=== PATIENT | male | born 1945 | race Caucasian/White ===

== ENCOUNTER 2016-10-29 11:05 | Observation (INO) | payer MEDICARE, OTHER ==
[~2016-10-29] VITALS: Ht 180.3 cm; Wt 98.0 kg
[~2016-10-29 11:05] MED LIST: ALDACTONE25 MG PO; ASPIRIN LOW DOS81 M2 PO; AZITHROMYCIN500 MG PO; CARVEDILOL3.125 MG PO; HUMULIN 70/30 SC; IPRATROPIU0.5 MG/3 M NEB; LASIX 40 MG40 MG/TAB PO; LIPITOR40 MG PO; LISINOPRIL10 MG PO; LISINOPRIL2.5 MG PO; LISINOPRIL20 M1 PO; MECLIZINE25 MG PO; NICOTINE T21 MG/PATC TD; NO HOME MEDS; NOVOLIN 70/30 SC; PERCOCET 10/31 COMBO PO; PREDNISONE50 MG PO; PROAIR HFA IN; ROCEPHIN 1 GM1 GM IV; SYMBICORT1 AE1 IN; TRAMADOL HCL50 MG OR; ZESTRIL/PRIN5 MG/TA1 PO; ZOFRAN ODT4 MG PO; [UNRECOGNIZED DRUG - OTHER] IV
[2016-10-29] MEDS ORDERED: LANTUS100 UNIT/M SC (11:18)
[2016-10-29] MEDS ORDERED: LIPITOR40 M1 PO (11:19)
[2016-10-29] MEDS ORDERED: SPIRONOLACTONE50 MG PO (11:20)
[2016-10-29] MEDS ORDERED: MULTI VIT PO (11:23)
[2016-10-29] MEDS ORDERED: LASIX 80 MG TAB80 M1 PO (11:23)
[2016-10-29] MEDS ORDERED: VITAMIN D1000 UNI1 PO (11:24)
[2016-10-29] MEDS ORDERED: BUDESONID2 IN (11:25)
[2016-10-29] MEDS ORDERED: ACCOLATE10 MG PO (11:26)
[2016-10-29] MEDS ORDERED: IPRATROPIU0.5 MG/3 M IN (11:26)
[2016-10-29] MEDS ORDERED: VITAMIN C500 M1 PO (11:27)
[2016-10-29] MEDS ORDERED: ZYRTEC10 MG PO (11:27)
[2016-10-29] MEDS ORDERED: CARVEDILOL3.125 MG PO (11:28)
[2016-10-29] MEDS ORDERED: LISINOPRIL5 MG PO (11:28)
[2016-10-29] MEDS ORDERED: BAYER ASPIRIN325 MG PO (11:29)
[2016-10-29] MEDS ORDERED: ESCITALOPRAM OX10 MG PO (11:29)
[2016-10-29 11:45] LABS: HEMATOCRIT 35.9 % (39.0-50.0); IMMATURE GRANULOCYTES 0.3 % (0.0-1.0); MEAN CELL VOLUME 102.9 fL CALC (80.0-100.0); MEAN CORPUSCULAR HGB 34.4 pG CALC (26.0-32.0); MEAN CORPUSCULAR HGB CONC 33.4 g/L CALC (32.0-36.0); NEUT# 6.51 thou/uL (1.82-7.42); RED BLOOD COUNT 3.49 mill/uL (4.70-6.10); RED CELL DISTRI WIDTH 13.3 % (11.5-15.5)
[2016-10-29 12:00] LABS: ALBUMIN 4.2 g/dL (3.2-5.0); ALKALINE PHOSPHATASE 100 u/l (38-126); AMYLASE 50 u/l (30-110); ANION GAP 16 (6-22 (CALC)); BILIRUBIN, TOTAL 0.6 mg/dL (0.0-1.4); BUN 47 mg/dL (8-23); BUN/CREATININE RATIO 38 (12-20 (CALC)); CALCIUM 9.1 mg/dL (8.4-10.2); CARBON DIOXIDE 26 mmol/l (22-30); CHLORIDE 104 mmol/l (95-108); CREATININE 1.2 mg/dL (0.7-1.3); GFR 60 ML/MIN (>=60 (CALC)); GFR FOR AFR.AMER. > 60 ML/MIN (>=60 (CALC)); GLUCOSE 143 mg/dL (82-115); LIPASE 100 u/l (23-300); POTASSIUM 4.4 mmol/l (3.5-5.1); SGOT/AST 22 u/l (19-48); SGPT/ALT 51 u/l (11-66); SODIUM 141 mmol/l (137-146); TOTAL PROTEIN 7.2 g/dL (6.3-8.2)
[2016-10-29 12:22] LABS: URINE BILIRUBIN - DIPSTICK NEGATIVE (NEGATIVE); URINE BLOOD DIPSTICK NEGATIVE (NEGATIVE); URINE CLARITY CLEAR; URINE COLOR YELLOW; URINE GLUCOSE - DIPSTICK NEGATIVE (NEGATIVE); URINE KETONE NEGATIVE (NEGATIVE); URINE LEUK ESTERASE NEGATIVE (NEGATIVE); URINE NITRITE - DIPSTICK NEGATIVE (Negative); URINE PROTEIN - DIPSTICK NEGATIVE (NEG-TRACE); URINE UROBILINOGEN - DIPSTICK 0.2 E.U./dL (0.2)
[2016-10-29 12:25] LABS: BARBITURATES NEGATIVE (NEGATIVE); COCAINE NEGATIVE (NEGATIVE); METHADONE NEGATIVE (NEGATIVE); OXCYCODONE NEGATIVE (NEGATIVE); TETRAHYDROCANNABIONOL NEGATIVE (NEGATIVE); TRICYLIC ANTIDEPRESSANTS NEGATIVE (NEGATIVE)
[2016-10-29 19:10] VITALS: BP 112/60
[2016-10-29 19:47] VITALS: BP 118/68
[2016-10-30 04:58] VITALS: BP 103/50
[2016-10-30 06:45] LABS: HEMOGLOBIN 11.4 g/dl (14.0-18.0); IMMATURE GRANULOCYTES 0.4 % (0.0-1.0); MEAN CELL VOLUME 102.1 fL CALC (80.0-100.0); MEAN CORPUSCULAR HGB 34.2 pG CALC (26.0-32.0); MEAN CORPUSCULAR HGB CONC 33.5 g/L CALC (32.0-36.0); NEUT# 4.6 thou/uL (1.82-7.42); RED BLOOD COUNT 3.33 mill/uL (4.70-6.10); RED CELL DISTRI WIDTH 13.3 % (11.5-15.5)
[2016-10-30 06:56] LABS: ANION GAP 13 (6-22 (CALC)); BUN 44 mg/dL (8-23); BUN/CREATININE RATIO 36 (12-20 (CALC)); CALCIUM 8.9 mg/dL (8.4-10.2); CARBON DIOXIDE 26 mmol/l (22-30); CHLORIDE 108 mmol/l (95-108); CREATININE 1.2 mg/dL (0.7-1.3); GFR 60 ML/MIN (>=60 (CALC)); GFR FOR AFR.AMER. > 60 ML/MIN (>=60 (CALC)); GLUCOSE 100 mg/dL (82-115); HDL CHOLESTEROL 18 mg/dL (>=40); POTASSIUM 4.1 mmol/l (3.5-5.1); SODIUM 143 mmol/l (137-146); TOTAL TRIGLYCERIDES 69 mg/dl (30-149); VLDL CHOLESTROL 14 mg/dl (4-45 (CALC))
[2016-10-30 07:03] LABS: CALCULATED LDLCHOLESTEROL < 18 mg/dL (62-129 (CALC)); CHOLESTEROL HDL RATIO < 2.8 (<4.4 (CALC)); TOTAL CHOLESTEROL < 50 mg/dl (0-199)
[2016-10-30] MEDS ORDERED: ASPIRIN EC325 MG PO (08:09)
[2016-10-30 09:00] VITALS: BP 126/56
== END 2016-10-30 10:46 | disposition home or self-care (01) ==
LOC: ENPENDDIS → ED 11:05 → ED-I 14:06 → ED 14:31 → MS2 14:32
PROVIDERS: Emergency Medicine; ADMIT Internal Medicine; ATTEND Internal Medicine
DX: R10.32 Left lower quadrant pain (principal); K46.0 Unspecified abdominal hernia with obstruction, without gangrene; I11.0 Hypertensive heart disease with heart failure; I50.22 Chronic systolic (congestive) heart failure; E11.9 Type 2 diabetes mellitus without complications; R00.1 Bradycardia, unspecified; K70.30 Alcoholic cirrhosis of liver without ascites; F17.210 Nicotine dependence, cigarettes, uncomplicated; I25.10 Atherosclerotic heart disease of native coronary artery without angina pectoris; I25.5 Ischemic cardiomyopathy; J44.9 Chronic obstructive pulmonary disease, unspecified; Z79.4 Long term (current) use of insulin
CPT/HCPCS: G0378; Q9967

== ENCOUNTER 2017-03-21 11:21 | Emergency (ER) | payer MEDICARE, OTHER ==
[~2017-03-21] VITALS: Ht 180.3 cm; Wt 90.0 kg
[~2017-03-21 11:21] MED LIST changes: +ACCOLATE10 MG PO; +ASPIRIN EC325 MG PO; +BAYER ASPIRIN325 MG PO; +BUDESONID2 IN; +ESCITALOPRAM OX10 MG PO; +IPRATROPIU0.5 MG/3 M IN; +LANTUS100 UNIT/M SC; +LASIX 80 MG TAB80 M1 PO; +LIPITOR40 M1 PO; +LISINOPRIL5 MG PO; +MULTI VIT PO; +SPIRONOLACTONE50 MG PO; +VITAMIN C500 M1 PO; +VITAMIN D1000 UNI1 PO; +ZYRTEC10 MG PO
[2017-03-21 11:47] LABS: HEMATOCRIT 39.3 % (39.0-50.0); HEMOGLOBIN 12.7 g/dl (14.0-18.0); IMMATURE GRANULOCYTES 0.3 % (0.0-1.0); MEAN CORPUSCULAR HGB CONC 32.3 g/L CALC (32.0-36.0); NEUT# 7.14 thou/uL (1.82-7.42); RED BLOOD COUNT 3.97 mill/uL (4.70-6.10); RED CELL DISTRI WIDTH 16.2 % (11.5-15.5)
[2017-03-21 12:10] LABS: ALBUMIN 3.7 g/dL (3.2-5.0); ALKALINE PHOSPHATASE 105 u/l (38-126); ANION GAP 12 (6-22 (CALC)); BILIRUBIN, TOTAL 0.9 mg/dL (0.0-1.4); BUN 32 mg/dL (8-23); BUN/CREATININE RATIO 33 (12-20 (CALC)); CALCIUM 8.8 mg/dL (8.4-10.2); CARBON DIOXIDE 38 mmol/l (22-30); CHLORIDE 103 mmol/l (95-108); GFR > 60 ML/MIN (>=60 (CALC)); GFR FOR AFR.AMER. > 60 ML/MIN (>=60 (CALC)); GLUCOSE 236 mg/dL (82-115); POTASSIUM 3.8 mmol/l (3.5-5.1); SGOT/AST 53 u/l (19-48); SGPT/ALT 34 u/l (11-66); SODIUM 149 mmol/l (137-146)
[2017-03-21 12:16] LABS: URINE BILIRUBIN - DIPSTICK NEGATIVE (NEGATIVE); URINE BLOOD DIPSTICK NEGATIVE (NEGATIVE); URINE CLARITY CLEAR; URINE COLOR YELLOW; URINE GLUCOSE - DIPSTICK NEGATIVE (NEGATIVE); URINE KETONE NEGATIVE (NEGATIVE); URINE LEUK ESTERASE NEGATIVE (NEGATIVE); URINE NITRITE - DIPSTICK NEGATIVE (Negative); URINE PH 5.5 (4.5-8.0); URINE PROTEIN - DIPSTICK NEGATIVE (NEG-TRACE); URINE UROBILINOGEN - DIPSTICK 0.2 E.U./dL (0.2)
[2017-03-21 12:21] LABS: MYOGLOBIN 82 ng/mL (0 - 121)
[2017-03-21 14:35] VITALS: BP 118/59
== END 2017-03-21 14:37 | disposition left against medical advice (07) ==
LOC: ED 11:21
PROVIDERS: Emergency Medicine
DX: J44.1 Chronic obstructive pulmonary disease with (acute) exacerbation (principal); R10.9 Unspecified abdominal pain; F17.210 Nicotine dependence, cigarettes, uncomplicated; I25.10 Atherosclerotic heart disease of native coronary artery without angina pectoris; E11.9 Type 2 diabetes mellitus without complications; I50.9 Heart failure, unspecified; Z91.19 Patient's noncompliance with other medical treatment and regimen

== ENCOUNTER 2017-03-21 15:33 | Inpatient (IN) | payer MEDICARE, OTHER ==
[~2017-03-21] VITALS: Ht 180.3 cm; Wt 108.9 kg
--- NOTE | 2017-03-21 15:40 | NUR ---
DIRECT ADMIT VIA AMBULATION ACCOMPANIED BY ROD TROY. EXERTIONAL SHORTNESS OF BREATH NOTED ON ROOM AIR. #22 LH STARTED BY Paige CLINTON RN. ABRASION TO RIGHT LOWER ARM. REFUSES TO REMOVE CLOTHES AND WEAR GOWN. ORIENTED TO ROOM AND CALL SYSTEM. SAFETY PRECAUTIONS REINFORCED. CALL LIGHT WITHIN REACH. ENCOURAGED PT TO CALL FOR ANY NEEDS.
[2017-03-21 15:44] VITALS: BP 136/75
--- NOTE | 2017-03-21 17:25 | NUR ---
DR VIVAR IN WITH PT, NEW ORDERS RECEIVED.
[2017-03-21 18:45] VITALS: BP 117/52
--- NOTE | 2017-03-21 21:00 | NUR ---
PT RESTING AT BEDSIDE;PT DENIES ANY PAIN OR DISCOMFORTS AT THIS TIME;EXERTIONAL SOB NOTED;PHOTOGRAPH OF ABRASION TO RIGHT ARM OBTAIN AND PLACED IN CHART;NEW DRESSING APPLIED,CDI;NICOTINE PATCH TO LEFT UPPER ARM;#20G TO RIGHT WRIST FLUSHED,PATENT,AND SECURED WITH COBAN;URINAL AT BEDSIDE;PT DENIES ANY NEEDS AT THIS TIME AND IS EDUCATED ON SAFETY PRECAUTIONS;CALL LIGHT IN REACH;WILL CONTINUE TO MONITOR
--- NOTE | 2017-03-21 22:30 | NUR ---
PT CALLED WRITTER TO THE ROOM;PT SCRATCHED A SCAB ON HIS RIGHT UPPER ARM WHICH IS NOW BLEEDING;SITE CLEANED WITH NS AND DRESSED WITH ABD PAD AND GUAZE;PT RE-POSITIONED BACK INTO BED;PT DENIES ANY PAIN OR NEEDS AT THIS TIME;PT EDUCATED TO CALL FOR ASSISTANCE IF NEEDED;CALL LIGHT IN REACH;WILL CONTINUE TO MONITOR
[2017-03-22 04:10] VITALS: BP 123/70
--- NOTE | 2017-03-22 04:15 | NUR ---
PT RESTING AT BEDSIDE REQUESTING MORNING COFFEE;VS OBTAINED;RESPIRATIONS EVEN AND UNLABORED AT THIS TIME;PT DENIES ANY PAIN OR DISCOMFORTS;IV SITE REMAINS HEALTHY AND PATENT;VS OBTAINED;FRESH COFFEE PROVIDED;PT DENIES ANY NEEDS;WILL CONTINUE TO MONITOR
[2017-03-22 05:03] LABS: HEMATOCRIT 42.7 % (39.0-50.0); HEMOGLOBIN 13.7 g/dl (14.0-18.0); IMMATURE GRANULOCYTES 0.4 % (0.0-1.0); MEAN CELL VOLUME 99.1 fL CALC (80.0-100.0); MEAN CORPUSCULAR HGB 31.8 pG CALC (26.0-32.0); MEAN CORPUSCULAR HGB CONC 32.1 g/L CALC (32.0-36.0); NEUT# 8.63 thou/uL (1.82-7.42); RED BLOOD COUNT 4.31 mill/uL (4.70-6.10); RED CELL DISTRI WIDTH 16.1 % (11.5-15.5)
[2017-03-22 05:16] LABS: ALKALINE PHOSPHATASE 126 u/l (38-126); ANION GAP 17 (6-22 (CALC)); BILIRUBIN, TOTAL 0.9 mg/dL (0.0-1.4); BUN 31 mg/dL (8-23); BUN/CREATININE RATIO 31 (12-20 (CALC)); CALCIUM 9.4 mg/dL (8.4-10.2); CALCULATED LDLCHOLESTEROL 36 mg/dL (62-129 (CALC)); CARBON DIOXIDE 33 mmol/l (22-30); CHLORIDE 105 mmol/l (95-108); CHOLESTEROL HDL RATIO 2.6 (<4.4 (CALC)); GFR > 60 ML/MIN (>=60 (CALC)); GFR FOR AFR.AMER. > 60 ML/MIN (>=60 (CALC)); GLUCOSE 365 mg/dL (82-115); HDL CHOLESTEROL 29 mg/dL (>=40); POTASSIUM 4.5 mmol/l (3.5-5.1); SGOT/AST 23 u/l (19-48); SGPT/ALT 39 u/l (11-66); SODIUM 150 mmol/l (137-146); TOTAL CHOLESTEROL 76 mg/dl (0-199); TOTAL PROTEIN 7.1 g/dL (6.3-8.2); TOTAL TRIGLYCERIDES 55 mg/dl (30-149); VLDL CHOLESTROL 11 mg/dl (4-45 (CALC))
[2017-03-22 07:30] VITALS: BP 109/58
--- NOTE | 2017-03-22 08:20 | NUR ---
DR. VIVAR IN TO SEE PT; PLAN OF CARE DISCUSSED
--- NOTE | 2017-03-22 12:00 | NUR ---
PT SITTING ON SIDE OF BED; TOLERATING LUNCH WELL; NO COMPLAINTS OR CONCERNS VOICED; CALL HAINES WITHIN REACH; WILL CONTINUE TO MONITOR.
--- NOTE | 2017-03-22 16:23 | NUR ---
PT RESTING WITH EYES CLOSED; NO S/SX OF DISTRESS NOTED; TELE MONITOR IN PLACE; CALL HAINES WITHIN REACH; WILL CONTINUE TO MONITOR.
[2017-03-22 17:05] VITALS: BP 122/65
--- NOTE | 2017-03-22 18:20 | NUR ---
PT REFUSE ARMANDO HOSE; STATES TOO TIGHT ON LEGS; CALL HAINES WITHIN REACH; WILL CONTINUE TO MONITOR.
[2017-03-22 19:25] VITALS: BP 117/59
--- NOTE | 2017-03-22 20:45 | NUR ---
PT RESTING AT BEDSIDE;RESPIRATIONS EVEN AND UNLABORED ON 02 VIA NC;PT VOICES NO COMPLAINTS OR CONERNS AT THIS TIME;#20G TO RIGHT WRIST AND #20G TO LAC FLUSHED,PATENT AND SECURED WITH COBAN;ACCUCHECK OF 229 OBTAINED;ASSESSMENT COMPLETED;SCD'S IN PLACE;SAFETY PRECAUTIONS REINFORCED;PT EDUCATED TO CALL FOR ASSISTANCE IF NEEDED;CALL LIGHT IN REACH;WILL CONTINUE TO MONITOR
--- NOTE | 2017-03-23 00:20 | NUR ---
PT RESTING AT BEDSIDE;PT REPORTS DIFFICULTY SLEEPING AT NIGHT IN HOSPITAL AND AT HOME;RESPIRATIONS SHALLOW BUT EVEN;PT REFUSES SCD'S AT THIS TIME;JUICE PROVIDED PER REQUEST;NO OTHER COMPLAINTS OR CONERNS VOICED AT THIS TIME;CALL LIGHT IN REACH;WILL CONTINUE TO MONITOR
--- NOTE | 2017-03-23 04:40 | NUR ---
PT RESTING AT BEDSIDE;PT VOICES NO COMPLAINTS OF PAIN OR DISCOMFORTS;RESPIRATIONS SHALLOW BUT EVEN ON OXYGEN;VS OBTAINED;PT EDUCATED TO CALL FOR ASSISTANCE IF NEEDED;CALL LIGHT IN REACH;WILL CONTINUE TO MONITOR
[2017-03-23 04:41] VITALS: BP 102/53; BP 115/77
[2017-03-23 05:35] LABS: HEMATOCRIT 40.7 % (39.0-50.0); HEMOGLOBIN 13.1 g/dl (14.0-18.0); IMMATURE GRANULOCYTES 0.8 % (0.0-1.0); MEAN CELL VOLUME 97.6 fL CALC (80.0-100.0); MEAN CORPUSCULAR HGB 31.4 pG CALC (26.0-32.0); MEAN CORPUSCULAR HGB CONC 32.2 g/L CALC (32.0-36.0); NEUT# 17.23 thou/uL (1.82-7.42); RED BLOOD COUNT 4.17 mill/uL (4.70-6.10); RED CELL DISTRI WIDTH 16.1 % (11.5-15.5)
[2017-03-23 06:00] LABS: ALKALINE PHOSPHATASE 113 u/l (38-126); ANION GAP 17 (6-22 (CALC)); BILIRUBIN, TOTAL 0.8 mg/dL (0.0-1.4); BUN 41 mg/dL (8-23); BUN/CREATININE RATIO 38 (12-20 (CALC)); CALCIUM 9.8 mg/dL (8.4-10.2); CARBON DIOXIDE 31 mmol/l (22-30); CHLORIDE 103 mmol/l (95-108); CREATININE 1.1 mg/dL (0.7-1.3); GFR > 60 ML/MIN (>=60 (CALC)); GFR FOR AFR.AMER. > 60 ML/MIN (>=60 (CALC)); GLUCOSE 228 mg/dL (82-115); POTASSIUM 4.6 mmol/l (3.5-5.1); SGOT/AST 21 u/l (19-48); SGPT/ALT 40 u/l (11-66); SODIUM 146 mmol/l (137-146); TOTAL PROTEIN 7.1 g/dL (6.3-8.2)
--- NOTE | 2017-03-23 07:00 | NUR ---
RECEIVED BEDSIDE REPORT FROM BAKARI TROY. SITTING ON EDGE OF BED WITH FEET DANGLING. RESPS EVEN AND UNLABORED ON O2 VIA NC, SHORTNESS OF BREATH WITH EXERTION NOTED. DENIES PAIN OR DISCOMFORT. PLAN OF CARE DISCUSSED. SAFETY PRECAUTIONS REINFORCED. BED IN LOWEST POSITION WITH WHEELS LOCKED. CALL LIGHT WITHIN REACH. ENCOURAGED PT TO CALL FOR ANY NEEDS.
[2017-03-23 08:42] VITALS: BP 106/50
--- NOTE | 2017-03-23 08:45 | NUR ---
DR VIVAR IN WITH PT, NEW ORDERS RECEIVED.
--- NOTE | 2017-03-23 11:35 | NUR ---
PHONE CALL TO DR VIVAR, NEW ORDERS RECEIVED.
--- NOTE | 2017-03-23 12:23 | NUR ---
AMBULATED OFF FLOOR TO SMOKE. EDUCATED PT ON RISKS OF SMOKING CIGARETTES. [facility] IS A SMOKEFREE FACILITY. DR VIVAR NOTIFIED.
--- NOTE | 2017-03-23 12:55 | NUR ---
AMBULATED BACK TO ROOM WITH STEADY GAIT.
[2017-03-23 15:30] VITALS: BP 107/57
--- NOTE | 2017-03-23 16:00 | NUR ---
SITTING ON EDGE OF BED WITH FEET DANGLING. RESPS EVEN AND UNLABORED ON O2 VIA NC. DENIES PAIN OR DISCOMFORT. CALL LIGHT WITHIN REACH.
[2017-03-23 19:10] VITALS: BP 103/68
--- NOTE | 2017-03-23 19:30 | NUR ---
PT SITTING UP ON SIDE OF BED. PT IS ALERT AND ORIENTED X3. PERRLA.RESP ARE EVEN AND UNLABORED. LUNGS ARE CLEAR. HR REGULAR. PULSES PALPABLE THROUGHOUT. NO EDEMA NOTED. BS ACTIVE. #20 LAC AND #20 RW. NO REDNESS OR EDEMA NOTED. WILL CONTINUE TO MONITOR.
--- NOTE | 2017-03-24 | NUR ---
PT SITTING UP ON SIDE OF BED. ENCOURAGED PT TO REST IN BED. PT REFUSED. RESP ARE EVEN AND UNLABORED. NO DISTRESS NOTED. WILL CONTINUE TO MONITOR.
[2017-03-24 04:20] VITALS: BP 116/71
--- NOTE | 2017-03-24 04:39 | NUR ---
PT SITTING UP ON SIDE OF BED WITH EYES CLOSED. RESP ARE EVEN AND UNLABORED. NO DISTRESS NOTED. NO CHANGE IN PT STATUS. WILL CONTINE TO MONITOR.
--- NOTE | 2017-03-24 07:00 | NUR ---
REPORT RECIEVED FROM KERMIT VICENTE. PT ASLEEP UPON ENTRY, WOKE SPONTANEOUSLY TO SPEECH. PT HAS NO COMPLAINTS OF PAIN. RESP EVEN AND UNLABORED. IV SIGHT APPEARS HEALTHY. SAFETY PRECAUTIONS IN PLACE. CALL LIGHT WITHIN REACH. WILL CONTINUE TO MONITOR HOURLY.
[2017-03-24 07:56] VITALS: BP 100/62
--- NOTE | 2017-03-24 08:40 | NUR ---
DOCTOR IN ROOM WITH PT.
--- NOTE | 2017-03-24 09:02 | NUR ---
CONSULT CALLED TO DR. BRISCOE. APPTOINTMENT SET FOR OUTPATIENT IN DR. BRISCOE OFFICE IN [place], [address] 03-29 @ 3030.
[2017-03-24 15:40] VITALS: BP 104/59
[2017-03-24 17:00] VITALS: BP 100/62
--- NOTE | 2017-03-24 18:00 | NUR ---
PT HAS BP OF 100/62, HR 55. DR. GHAZALA LYONS NOTIFIED.
[2017-03-24 19:10] VITALS: BP 132/66
--- NOTE | 2017-03-24 20:30 | NUR ---
PT SITTING ON SIDE OF BED A/O X3, RESPIRATIONS EVEN AND UNLABORED ABDOMEN IS LARGE AND FIRM TO TOUCH REFUSES TO WEAR ABDOMINAL BINDER. ENCOURAGED TO ELEVATE LEGS, AND ALSO REFUSES. LOWER EXTREMITIES ARE REDDNED WITH PITTING EDEMA, THE LEFT LEG MORE EDEMATOUS THAN THE RIGHT, WEAPING SEROUS FLUID. CALL LIGHT IN REACH. WILL CONTINUE TO MONITOR.
--- NOTE | 2017-03-25 01:00 | NUR ---
SITTING ON SIDE OF BED, RESPIRATIONS EVEN AND UNLABORED. STATES CANT SLEEP, O2 @2L VIA NC IN PLACE. WILL CONTINUE TO MONITOR.
--- NOTE | 2017-03-25 03:00 | NUR ---
PT IN BED LAYING ON LEFT SIDE WITH EYES CLOSED, RESPIRATIONS EVEN AND UNLABORED.
[2017-03-25 03:51] VITALS: BP 117/61
--- NOTE | 2017-03-25 04:30 | NUR ---
MORNING BLOOD WORK DRAWN BY PERSONAL INJURY LAW SPECIALIST, TOLERATED WELL.
[2017-03-25 05:40] LABS: HEMATOCRIT 41.1 % (39.0-50.0); HEMOGLOBIN 13.1 g/dl (14.0-18.0); IMMATURE GRANULOCYTES 0.6 % (0.0-1.0); MEAN CELL VOLUME 98.6 fL CALC (80.0-100.0); MEAN CORPUSCULAR HGB 31.4 pG CALC (26.0-32.0); MEAN CORPUSCULAR HGB CONC 31.9 g/L CALC (32.0-36.0); NEUT# 9.43 thou/uL (1.82-7.42); RED BLOOD COUNT 4.17 mill/uL (4.70-6.10); RED CELL DISTRI WIDTH 15.6 % (11.5-15.5)
[2017-03-25 06:03] LABS: ALBUMIN 3.8 g/dL (3.2-5.0); ALKALINE PHOSPHATASE 97 u/l (38-126); ANION GAP 15 (6-22 (CALC)); BUN 54 mg/dL (8-23); BUN/CREATININE RATIO 47 (12-20 (CALC)); CALCIUM 9.4 mg/dL (8.4-10.2); CARBON DIOXIDE 32 mmol/l (22-30); CHLORIDE 101 mmol/l (95-108); CREATININE 1.1 mg/dL (0.7-1.3); GFR > 60 ML/MIN (>=60 (CALC)); GFR FOR AFR.AMER. > 60 ML/MIN (>=60 (CALC)); GLUCOSE 147 mg/dL (82-115); POTASSIUM 4.8 mmol/l (3.5-5.1); SGOT/AST 28 u/l (19-48); SGPT/ALT 49 u/l (11-66); SODIUM 143 mmol/l (137-146); TOTAL PROTEIN 6.8 g/dL (6.3-8.2)
--- NOTE | 2017-03-25 07:00 | NUR ---
REPORT RECIEVED FROM WOODROW GARCIA. PT ASLEEP ON ENTRY. RESP EVEN AND UNLABORED. NO SIGNS OF DISTRESS. SAFETY PRECAUTIONS IN PLACE. WILL CONTINUE TO MONITOR.
[2017-03-25 07:50] VITALS: BP 103/56
[2017-03-25] MEDS ORDERED: LEVAQUIN750 MG PO (09:12)
--- NOTE | 2017-03-25 11:42 | NUR ---
O2 SAT: 84. PT EDUCATED ON IMPORTANCE OF WEARING O2. PT REFUSES TO WEAR O2. SAFETY PRECAUTIONS REINFORCED. CALL LIGHT WITHIN REACH.
--- NOTE | 2017-03-25 13:51 | NUR ---
PT STATES HE IS GOING OFF THE FLOOR TO SMOKE. PT SIGNED THE RELEASE FROM LIABILITY FOR SMOKING FORM.
--- NOTE | 2017-03-25 14:13 | NUR ---
PT BACK ON FLOOR.
[2017-03-25 15:28] VITALS: BP 103/52
--- NOTE | 2017-03-25 15:30 | NUR ---
IV REMOVED, CATH INTACT. PRESSURE DRESSING APPLIED. SITE CLEAN DRY AND INTACT.
== END 2017-03-25 19:30 | disposition home or self-care (01) | DRG 291 ==
LOC: MS2 15:33
PROVIDERS: ADMIT Internal Medicine Geriatric Medicine; ATTEND Internal Medicine Geriatric Medicine
DX: I11.0 Hypertensive heart disease with heart failure (principal); J18.9 Pneumonia, unspecified organism; J96.01 Acute respiratory failure with hypoxia; J44.0 Chronic obstructive pulmonary disease with (acute) lower respiratory infection; L03.115 Cellulitis of right lower limb; L03.116 Cellulitis of left lower limb; J44.1 Chronic obstructive pulmonary disease with (acute) exacerbation; I50.23 Acute on chronic systolic (congestive) heart failure; F03.90 Unspecified dementia, unspecified severity, without behavioral disturbance, psychotic disturbance, mood disturbance, and anxiety; K74.60 Unspecified cirrhosis of liver; I25.10 Atherosclerotic heart disease of native coronary artery without angina pectoris; E11.51 Type 2 diabetes mellitus with diabetic peripheral angiopathy without gangrene; K21.9 Gastro-esophageal reflux disease without esophagitis; F41.9 Anxiety disorder, unspecified; F31.9 Bipolar disorder, unspecified; G89.29 Other chronic pain; M54.5 Low back pain; I89.0 Lymphedema, not elsewhere classified; F17.210 Nicotine dependence, cigarettes, uncomplicated; Z91.19 Patient's noncompliance with other medical treatment and regimen; Z79.4 Long term (current) use of insulin
CPT/HCPCS: Q9967

== ENCOUNTER 2017-08-19 10:12 | Day surgery (SDC) | payer MEDICARE, OTHER ==
[~2017-08-19] VITALS: Ht 180.3 cm; Wt 94.3 kg
[~2017-08-19 10:12] MED LIST changes: +LASIX 40 MG TAB40 MG PO; +LEVAQUIN750 MG PO; +LEVEMIR FL100 UNIT/M SC; +OXY1; +RANITIDINE150 M1 PO; +SPIRONOLACT50 M1 PO
[2017-08-19 11:50] VITALS: BP 102/54
== END 2017-08-19 11:59 | disposition home or self-care (01) ==
LOC: ENDO 10:12
PROVIDERS: ATTEND Internal Medicine Gastroenterology
PROC: 0DB68ZX Excision of Stomach, Via Natural or Artificial Opening Endoscopic, Diagnostic (ICD-10-PCS; principal; 2017-08-19)
DX: K70.31 Alcoholic cirrhosis of liver with ascites (principal); I85.10 Secondary esophageal varices without bleeding; K22.2 Esophageal obstruction; J39.2 Other diseases of pharynx; K29.51 Unspecified chronic gastritis with bleeding; K31.9 Disease of stomach and duodenum, unspecified; K80.20 Calculus of gallbladder without cholecystitis without obstruction; R19.7 Diarrhea, unspecified; E11.9 Type 2 diabetes mellitus without complications; I25.10 Atherosclerotic heart disease of native coronary artery without angina pectoris; E78.00 Pure hypercholesterolemia, unspecified; Z95.5 Presence of coronary angioplasty implant and graft

== ENCOUNTER 2018-05-13 11:24 | Inpatient (IN) | payer MEDICARE, OTHER ==
[2018-05-13] VITALS (23 sets, daily range): BP systolic 86–118; BP diastolic 49–68
[~2018-05-13] VITALS: Ht 180.3 cm; Wt 118.2 kg
[~2018-05-13 11:24] MED LIST changes: +BRILINTA90 MG PO; +PROVENTIL HFA IN
[2018-05-13 12:15] LABS: HEMATOCRIT 25.2 % (39.0-50.0); HEMOGLOBIN 7.6 g/dl (14.0-18.0); IMMATURE GRANULOCYTES 0.3 % (0.0-5.0); MEAN CORPUSCULAR HGB 30.8 pG CALC (26.0-32.0); MEAN CORPUSCULAR HGB CONC 30.2 g/L CALC (32.0-36.0); NEUT# 5.65 thou/uL (1.82-7.42); RED BLOOD COUNT 2.47 mill/uL (4.70-6.10)
[2018-05-13 12:57] LABS: ALBUMIN 2.5 g/dL (3.2-5.0); ALKALINE PHOSPHATASE 95 u/l (38-126); ANION GAP 10 (6-22 (CALC)); BILIRUBIN, TOTAL 0.5 mg/dL (0.0-1.4); BUN 39 mg/dL (8-23); BUN/CREATININE RATIO 34 (12-20 (CALC)); CARBON DIOXIDE 22 mmol/l (22-30); CHLORIDE 108 mmol/l (95-108); CREATININE 1.1 mg/dL (0.7-1.3); GFR > 60 ML/MIN (>=60 (CALC)); GFR FOR AFR.AMER. > 60 ML/MIN (>=60 (CALC)); LIPASE 107 u/l (23-300); POTASSIUM 3.5 mmol/l (3.5-5.1); SGOT/AST 28 u/l (19-48); SODIUM 137 mmol/l (137-146); TOTAL PROTEIN 5.6 g/dL (6.3-8.2)
[2018-05-13] MEDS ORDERED: B-121000 MC2 PO (15:04)
[2018-05-13] MEDS ORDERED: FERR SULFATE325 MG PO (15:04)
[2018-05-13 15:14] LABS: URINE BILIRUBIN - DIPSTICK NEGATIVE (NEGATIVE); URINE BLOOD DIPSTICK NEGATIVE (NEGATIVE); URINE COLOR YELLOW; URINE GLUCOSE - DIPSTICK NEGATIVE (NEGATIVE); URINE KETONE NEGATIVE (NEGATIVE); URINE LEUK ESTERASE NEGATIVE (NEGATIVE); URINE NITRITE - DIPSTICK NEGATIVE (Negative); URINE PROTEIN - DIPSTICK NEGATIVE (NEG-TRACE); URINE SPECIFIC GRAVITY 1.015; URINE UROBILINOGEN - DIPSTICK 0.2 E.U./dL (0.2)
[2018-05-14] VITALS (24 sets, daily range): BP systolic 97–118; BP diastolic 45–67
[2018-05-14 05:02] LABS: HEMOGLOBIN 7.7 g/dl (14.0-18.0); IMMATURE GRANULOCYTES 0.3 % (0.0-5.0); MEAN CELL VOLUME 101.2 fL CALC (80.0-100.0); MEAN CORPUSCULAR HGB 31.2 pG CALC (26.0-32.0); MEAN CORPUSCULAR HGB CONC 30.8 g/L CALC (32.0-36.0); NEUT# 5.24 thou/uL (1.82-7.42); RED BLOOD COUNT 2.47 mill/uL (4.70-6.10); RED CELL DISTRI WIDTH 16.3 % (11.5-15.5)
[2018-05-14 05:54] LABS: ALBUMIN 2.6 g/dL (3.2-5.0); ALKALINE PHOSPHATASE 103 u/l (38-126); ANION GAP 10 (6-22 (CALC)); BILIRUBIN, TOTAL 0.4 mg/dL (0.0-1.4); BUN 36 mg/dL (8-23); BUN/CREATININE RATIO 30 (12-20 (CALC)); CARBON DIOXIDE 24 mmol/l (22-30); CHLORIDE 108 mmol/l (95-108); CREATININE 1.2 mg/dL (0.7-1.3); GFR 60 ML/MIN (>=60 (CALC)); GFR FOR AFR.AMER. > 60 ML/MIN (>=60 (CALC)); POTASSIUM 3.7 mmol/l (3.5-5.1); SGOT/AST 25 u/l (19-48); SODIUM 139 mmol/l (137-146); TOTAL PROTEIN 5.8 g/dL (6.3-8.2)
[2018-05-15] VITALS (10 sets, daily range): BP systolic 99–126; BP diastolic 55–77
[2018-05-15 05:11] LABS: HEMATOCRIT 29.4 % (39.0-50.0); HEMOGLOBIN 9.1 g/dl (14.0-18.0); IMMATURE GRANULOCYTES 0.6 % (0.0-5.0); MEAN CELL VOLUME 100.7 fL CALC (80.0-100.0); MEAN CORPUSCULAR HGB 31.2 pG CALC (26.0-32.0); NEUT# 5.54 thou/uL (1.82-7.42); RED BLOOD COUNT 2.92 mill/uL (4.70-6.10); RED CELL DISTRI WIDTH 16.9 % (11.5-15.5)
[2018-05-15 05:31] LABS: INTERNATIONAL NORMALIZED RATIO 1.1 RATIO (0.7-1.3); PROTHROMBIN TIME 11.4 SECONDS (9.0-12.5)
[2018-05-15 05:39] LABS: ALBUMIN 2.6 g/dL (3.2-5.0); ALKALINE PHOSPHATASE 101 u/l (38-126); ANION GAP 11 (6-22 (CALC)); BILIRUBIN, TOTAL 0.5 mg/dL (0.0-1.4); BUN 38 mg/dL (8-23); BUN/CREATININE RATIO 26 (12-20 (CALC)); CARBON DIOXIDE 25 mmol/l (22-30); CHLORIDE 107 mmol/l (95-108); CREATININE 1.4 mg/dL (0.7-1.3); GFR 50 ML/MIN (>=60 (CALC)); GFR FOR AFR.AMER. > 60 ML/MIN (>=60 (CALC)); POTASSIUM 4.2 mmol/l (3.5-5.1); SGOT/AST 25 u/l (19-48); SODIUM 139 mmol/l (137-146); TOTAL PROTEIN 5.7 g/dL (6.3-8.2)
== END 2018-05-15 18:42 | disposition short-term general hospital (02) | DRG 291 ==
LOC: ED 11:24 → ED-I 14:09 → ED 14:21 → ICU 14:22
PROVIDERS: Family Medicine; ADMIT Internal Medicine Geriatric Medicine; ATTEND Internal Medicine Geriatric Medicine
PROC: 06HM33Z Insertion of Infusion Device into Right Femoral Vein, Percutaneous Approach (ICD-10-PCS; principal; 2018-05-13)
PROC: 30233N1 Transfusion of Nonautologous Red Blood Cells into Peripheral Vein, Percutaneous Approach (ICD-10-PCS; 2018-05-14)
PROC: 30233N1 Transfusion of Nonautologous Red Blood Cells into Peripheral Vein, Percutaneous Approach (ICD-10-PCS; 2018-05-14)
DX: I11.0 Hypertensive heart disease with heart failure (principal); J18.9 Pneumonia, unspecified organism; R18.8 Other ascites; J44.0 Chronic obstructive pulmonary disease with (acute) lower respiratory infection; I50.33 Acute on chronic diastolic (congestive) heart failure; I42.9 Cardiomyopathy, unspecified; E11.51 Type 2 diabetes mellitus with diabetic peripheral angiopathy without gangrene; K21.9 Gastro-esophageal reflux disease without esophagitis; K74.60 Unspecified cirrhosis of liver; B19.20 Unspecified viral hepatitis C without hepatic coma; F17.210 Nicotine dependence, cigarettes, uncomplicated; I25.10 Atherosclerotic heart disease of native coronary artery without angina pectoris; K46.9 Unspecified abdominal hernia without obstruction or gangrene; F03.90 Unspecified dementia, unspecified severity, without behavioral disturbance, psychotic disturbance, mood disturbance, and anxiety; F41.9 Anxiety disorder, unspecified; F32.9 Major depressive disorder, single episode, unspecified; D64.9 Anemia, unspecified; Z91.19 Patient's noncompliance with other medical treatment and regimen
CPT/HCPCS: J3370; P9016; P9047

== ENCOUNTER 2018-05-26 02:30 | Emergency (ER) | payer MEDICARE, OTHER ==
[~2018-05-26] VITALS: Ht 180.3 cm; Wt 106.8 kg
[~2018-05-26 02:30] MED LIST changes: +B-121000 MC2 PO; +FERR SULFATE325 MG PO
[2018-05-26] MEDS ORDERED: BRILINTA90 MG PO (02:42)
[2018-05-26] MEDS ORDERED: SPIRONOLACT25 MG PO (02:44)
[2018-05-26] MEDS ORDERED: VITAMIN B 12100 MCG PO (02:44)
[2018-05-26] MEDS ORDERED: LACTULOSE PO (02:45)
[2018-05-26 04:37] VITALS: BP 101/42
== END 2018-05-26 04:35 | disposition home or self-care (01) ==
LOC: ED 02:30
PROC: 0HQ0XZZ Repair Scalp Skin, External Approach (ICD-10-PCS; principal; 2018-05-26)
DX: S01.01XA Laceration without foreign body of scalp, initial encounter (principal); S51.012A Laceration without foreign body of left elbow, initial encounter; S51.011A Laceration without foreign body of right elbow, initial encounter; E11.51 Type 2 diabetes mellitus with diabetic peripheral angiopathy without gangrene; M19.90 Unspecified osteoarthritis, unspecified site; J44.9 Chronic obstructive pulmonary disease, unspecified; K21.9 Gastro-esophageal reflux disease without esophagitis; K74.60 Unspecified cirrhosis of liver; B19.20 Unspecified viral hepatitis C without hepatic coma; F17.210 Nicotine dependence, cigarettes, uncomplicated; W18.39XA Other fall on same level, initial encounter; Y92.099 Unspecified place in other non-institutional residence as the place of occurrence of the external cause

== ENCOUNTER → 2018-06-28 | Outpatient (REF) | payer MEDICARE, OTHER ==
[~2018-06-28] MED LIST changes: -IPRATROPIU0.5 MG/3 M IN; +LACTULOSE PO; +QUETIAPINE FUMA25 MG PO; +SEROQUEL25 MG PO; +SPIRONOLACT25 MG PO; +VITAMIN B 12100 MCG PO
[2018-06-28 09:32] LABS: HEMOGLOBIN 8.3 g/dl (14.0-18.0); IMMATURE GRANULOCYTES 0.3 % (0.0-5.0); MEAN CELL VOLUME 101.5 fL CALC (80.0-100.0); MEAN CORPUSCULAR HGB 31.3 pG CALC (26.0-32.0); MEAN CORPUSCULAR HGB CONC 30.9 g/L CALC (32.0-36.0); NEUT# 5.04 thou/uL (1.82-7.42); RED BLOOD COUNT 2.65 mill/uL (4.70-6.10); RED CELL DISTRI WIDTH 19.5 % (11.5-15.5)
[2018-06-28 09:34] LABS: HEMATOCRIT 26.9 % (39.0-50.0)
[2018-06-28 09:53] LABS: PROTHROMBIN TIME 10.6 SECONDS (9.0-12.5)
[2018-06-28 10:04] LABS: CREATININE 2.1 mg/dL (0.7-1.3); POTASSIUM 4.8 mmol/l (3.5-5.1)
== END | disposition home or self-care (01) ==
LOC: ULTRASND 09:10
PROVIDERS: ATTEND Internal Medicine Geriatric Medicine
PROC: 0W9G3ZZ Drainage of Peritoneal Cavity, Percutaneous Approach (ICD-10-PCS; principal; 2018-06-28)
DX: R18.8 Other ascites (principal); I10 Essential (primary) hypertension; Z01.89 Encounter for other specified special examinations

== ENCOUNTER → 2018-07-11 | Outpatient (REF) | payer MEDICARE, OTHER ==
[2018-07-11 12:05] LABS: ALBUMIN 3.2 g/dL (3.2-5.0); BILIRUBIN, TOTAL 0.7 mg/dL (0.0-1.4); CREATININE 2.5 mg/dL (0.7-1.3); TOTAL PROTEIN 6.3 g/dL (6.3-8.2)
[2018-07-11 12:06] LABS: HEMATOCRIT 27.6 % (39.0-50.0); HEMOGLOBIN 8.4 g/dl (14.0-18.0); IMMATURE GRANULOCYTES 0.5 % (0.0-5.0); MEAN CELL VOLUME 104.5 fL CALC (80.0-100.0); MEAN CORPUSCULAR HGB 31.8 pG CALC (26.0-32.0); MEAN CORPUSCULAR HGB CONC 30.4 g/L CALC (32.0-36.0); NEUT# 4.52 thou/uL (1.82-7.42); POTASSIUM 5.2 mmol/l (3.5-5.1); RED BLOOD COUNT 2.64 mill/uL (4.70-6.10); RED CELL DISTRI WIDTH 21.2 % (11.5-15.5)
== END | disposition home or self-care (01) ==
LOC: LAB 11:15
PROVIDERS: ATTEND Internal Medicine Geriatric Medicine
DX: K74.60 Unspecified cirrhosis of liver (principal)

== ENCOUNTER 2018-07-13 10:52 | Observation (INO) | payer MEDICARE, OTHER ==
[~2018-07-13] VITALS: Ht 180.3 cm; Wt 120.3 kg
[~2018-07-13 10:52] MED LIST changes: -QUETIAPINE FUMA25 MG PO; -SEROQUEL25 MG PO
--- NOTE | 2018-07-13 11:02 | NUR ---
PT ARRIVED TO FLOOR VIA WHEELCHAIR IN STABLE CONDITION ACCOMPANIED BY VOLUNTEER;PT AMBULATED WITH A WEAK GAIT AND 1 PERSON ASSIST TO STANDING SCALE AND BEDSIDE;PT ORIENTED TO ROOM AND CALL LIGHT SYTSEM, ALERT AND ORIENTED X3;WT AND VS OBTAINED;PT REPORTS A "FALL" LAST NIGHT;MULTIPLE SKIN TEARS AND ABRASIONS NOTED THROUGOUT BODY, WOUNDS CLEANSED,PHOTOGRAPHS TAKEN, AND DRESSINGS APPLIED;PT DENIES ANY CURRENT PAIN OR DISCOMFORTS,PAIN SCALE AND REPORTING EDUCATED;RESPIRATIONS LABORED ON O2 @ 2L VIA NC, DIMINISHED LUNG SOUNDS NOTED;ABDOMEN DISTENDED/FIRM ON PALPATION AND ACTIVE IN ALL 4 QUADRANTS;+4 EDEMA NOTED TO BLE,WEEPING NOTED;BLE ELEVATED ON A PILLOW;#22G STARTED TO LAC ON FIRST ATTEMPT BY THIS WRITTER,NS TO BE STARTED PER ORDER;ACCUCHECK OF 170 OBTAINED AT THIS TIME;ALL SAFETY PRECAUTIONS REINFORCED WITH PT AND POC DISCUSSED;FRESH COFFEE PROVIDED PER REQUEST;ENCOURAGED PT TO EXPRESS NEEDS AND CONCERNS;FALL PRECAUTIONS IN PLACE WITH BED IN THE LOWEST POSITION AND CALL LIGHT IN REACH;WILL CONTINUE TO MONITOR
[2018-07-13 11:10] VITALS: BP 106/55
[2018-07-13 12:06] LABS: URINE BILIRUBIN - DIPSTICK NEGATIVE (NEGATIVE); URINE BLOOD DIPSTICK NEGATIVE (NEGATIVE); URINE COLOR YELLOW; URINE GLUCOSE - DIPSTICK NEGATIVE (NEGATIVE); URINE KETONE NEGATIVE (NEGATIVE); URINE PROTEIN - DIPSTICK NEGATIVE (NEG-TRACE); URINE SPECIFIC GRAVITY 1.015; URINE UROBILINOGEN - DIPSTICK 0.2 E.U./dL (0.2)
[2018-07-13 12:26] LABS: URINE LEUK ESTERASE SMALL (NEGATIVE); URINE NITRITE - DIPSTICK POSITIVE (Negative)
[2018-07-13 12:41] LABS: PROTHROMBIN TIME 10.8 SECONDS (9.0-12.5)
[2018-07-13 12:42] LABS: CREATININE 2.3 mg/dL (0.7-1.3); POTASSIUM 4.5 mmol/l (3.5-5.1)
[2018-07-13 12:52] LABS: URINE BACTERIA MODERATE hpf; URINE SQUAMOUS EPITHELIAL CELL FEW EPI/hpf (0-FEW)
[2018-07-13 14:15] LABS: IMMATURE GRANULOCYTES 0.4 % (0.0-5.0); MEAN CELL VOLUME 106.3 fL CALC (80.0-100.0); MEAN CORPUSCULAR HGB 31.5 pG CALC (26.0-32.0); MEAN CORPUSCULAR HGB CONC 29.6 g/L CALC (32.0-36.0); NEUT# 4.54 thou/uL (1.82-7.42); RED BLOOD COUNT 2.54 mill/uL (4.70-6.10); RED CELL DISTRI WIDTH 21.3 % (11.5-15.5)
--- NOTE | 2018-07-13 14:43 | NUR ---
PT TRANSFERRED TO [facility] AT THIS TIME VIA WHEELCHAIR IN STABLE CONDITION.
--- NOTE | 2018-07-13 15:05 | NUR ---
PT RETURNED TO FLOOR IN STABLE CONDITION VIA WHEELCHAIR ACCOMPANIED BY VOLUNTEER.
--- NOTE | 2018-07-13 16:00 | NUR ---
INFORMED CONSENT SIGNED FOR 2 UNITS OF PRBC'S
--- NOTE | 2018-07-13 16:10 | NUR ---
PT RESTING AT BEDSIDE;RESPIRATONS SHALLOW ON O2 @ 3L VIA NC;PT DENIES ANY CURRENT PAIN OR DISCOMFORTS;PT VOIDED 50CC OF CLEAR/YELLOW URINE;IV FLUIDS INFUSING WELL TO LAC;DRESSINGS REMAIN CDI;COFFEE PROVIDED PER REQUEST;PT ENCOURAGED TO EXPRESS NEEDS OR CONCERNS;FALL PRECAUTIONS IN PLACE WITH CALL LIGHT IN REACH;WILL CONTINUE TO MONITOR
[2018-07-13] MEDS ORDERED: SEROQUEL25 MG PO (16:14)
[2018-07-13 16:53] VITALS: BP 105/57
--- NOTE | 2018-07-13 17:20 | NUR ---
WHILE ASSISTING PT WITH AMBULATING BACK TO THE BED FROM THE BEDSIDE COMMODE HE "SLIPPED ON THE FLOOR FROM MY WEEPING LEGS AND FELL DOWN" WITH SERGIO SHEN AT BEDSIDE;UPON ENTERING THE ROOM PT FOUND LAYING ON THE FLOOR,RESTING HEAD ON BED RAIL;X2 NEW SKIN TEARS NOTED TO UPPER BACK.PHOTOGRAPHS OBTAINED AND WOUNDS DRESSED WITH VASELINE GUAZE,TELFA,ABD PAD AND PAPER TAPE;PT DENIES ANY CURRENT PAIN;VS OBTAINED BP 109/50 HR 69 O2 98% ON OXYGEN RR20;PT MARTI LIFTED WITH 4 PERSON ASSIST BACK INTO BED; TO BE NOTIFIED.
[2018-07-13 17:40] VITALS: BP 109/50
--- NOTE | 2018-07-13 17:40 | NUR ---
NOTIFIED OF PT FALL;NO NEW ORDERS RECEIVED.
[2018-07-13 18:43] VITALS: BP 103/53
--- NOTE | 2018-07-13 19:28 | NUR ---
PT. SITTING UP IN BED WITH LABORED BREATHING; O2 INFUSING PER NC @3LITERS/MIN PER NC; ASSESSMENT COMPLETED; PT. HAS DRESSINGS INTACT NOTED TO BILATERAL UE, RIGHT CHEST AND RLQ WITH BLEEDING NOTED; WILL RE-INFORCE; BLOOD ALSO NOTED TO DRESSING TO MID LOWER BACK; WILL RE-INFORCE; IV SITE PATENT AND SL; UPDATED ON POC; AWAITING BLOOD FROM LAB D/T PT. HAVING ANIITBODIES IN BLOOD IT IS NOT AVAILABLE YET; PER REPORT LAB IS TO CALL WHEN BLOOD IS READY. WILL MOVE PT. CLOSER TO NURSING STATION FOR SAFETY. PT. IS GOING TO ROOM 291. ENCOURAGED TO CALL FOR ANY NEEDS; CALL LIGHT IS IN REACH; WILL CONTINUE TO MONITOR.
--- NOTE | 2018-07-13 20:55 | NUR ---
SPOKE WITH DR. VIVAR AND NOTIFIED OF PT. BEING EDEMATOUS AND RECEIVING IVF @75MLS/HR; ALSO NOTIFIED HIM OF PT'S HOME MEDS NEEDING TO BE RECONCILLED WELL PT. HAVING BLEEDING NOTED TO SKIN TEARS TO RIGHT CHEST AND LEFT/MID BACK; NEW ORDERS RECEIVED AND TO BE CARRIED OUT;
--- NOTE | 2018-07-13 21:00 | NUR ---
PT. REFUSES MCCABE CATHETER.
--- NOTE | 2018-07-13 21:03 | NUR ---
SPOKE WITH LAB AND BLOOD IS STILL PENDING AND UNAVAILABLE FOR TRANSFUSION AT THIS TIME; LAB TO CALL THIS LINER MAN WHEN BLOOD IS READY FOR SAP GATHERER.
--- NOTE | 2018-07-13 22:50 | NUR ---
LINENS CHANGED AT THIS TIME D/T BLOOD NOTED TO SHEETS FROM SKIN TEAR TO LOWER BACK AND RIGHT UPPER BACK; DRESSINGS CHANGED WELL AT THIS TIME TO LOWER BACK AND RIGHT UPPER BACK; PT. REPOSITIONED ONTO RIGHT SIDE PER PT'S REQUEST; BLE ELVATED ONTO PILLOWS; BED ALARM SET; CALL LIGHT IS IN REACH.
[2018-07-13 23:11] VITALS: BP 90/52
--- NOTE | 2018-07-13 23:12 | NUR ---
NOTIFIED DR. VIVAR OF SEVER EDEMA NOTED TO PENIS AND OF PT'S REFUSAL OF MCCABE CATHETER; ALSO NOTIFIED HIM OF MANUAL B/P ; NO NEW ORDERS AT THIS TIME.
--- NOTE | 2018-07-13 23:27 | NUR ---
FIRST UNIT OF PRBC'S STARTED @100MLS/HR SPIKED BY THIS SOLAR TECH AND VERFIFIED WITH 2 NURSES PER POLICY;; WILL RUN SLOW PER ORDER; THIS SOLAR TECH IS AT BEDSIDE FOR INITIAL 15 MINUTES; NO REACTIONS NOTED AT THIS TIME; S/S OF REACTIONS REVIEWED WITH PT. PRIOR TO TRANSFUSION. WILL CONTINUE TO MONITOR.
[2018-07-13 23:41] VITALS: BP 97/50
[2018-07-14] VITALS (9 sets, daily range): BP systolic 98–113; BP diastolic 42–67
--- NOTE | 2018-07-14 02:12 | NUR ---
FIRST UNIT OF PRBC'S FINISHED; VSS; NO REACTIONS NOTED; ORDERED DOSE OF LASIX GIVEN; NEW TUBING HUNG WITH NS @KVO; WILL START NEXT UNIT SHORTLY;
--- NOTE | 2018-07-14 02:35 | NUR ---
SECOND UNIT OF PRBC'S HUNG; SPIKED BY THIS DIRECTOR OF SPECIAL EDUCATION AND VERIFIED BY 2 NURSES PER PROTOCAL; VSS; NO REACTIONS NOTED; THIS DIRECTOR OF SPECIAL EDUCATION AT BEDSIDE FOR INITIAL 15 MINUTES;
--- NOTE | 2018-07-14 05:52 | NUR ---
2ND UNIT OF PRBC'S FINISHED; VSS; NO REACTIONS NOTED; DRESSINGS CHANGED TO LOWER BACK, RIGHT LOWER ABDOMEN, AND RIGHT ARM;
[2018-07-14 08:20] LABS: HEMATOCRIT 29.7 % (39.0-50.0); HEMOGLOBIN 8.9 g/dl (14.0-18.0); IMMATURE GRANULOCYTES 0.3 % (0.0-5.0); MEAN CELL VOLUME 103.5 fL CALC (80.0-100.0); NEUT# 5.11 thou/uL (1.82-7.42); RED BLOOD COUNT 2.87 mill/uL (4.70-6.10); RED CELL DISTRI WIDTH 20.7 % (11.5-15.5)
[2018-07-14 08:34] LABS: ALBUMIN 3.2 g/dL (3.2-5.0); BILIRUBIN, TOTAL 0.6 mg/dL (0.0-1.4); CREATININE 2.4 mg/dL (0.7-1.3); TOTAL PROTEIN 6.5 g/dL (6.3-8.2)
[2018-07-14 08:37] LABS: POTASSIUM 5.5 mmol/l (3.5-5.1)
--- NOTE | 2018-07-14 08:45 | NUR ---
ASSESSMENT IS COMPLETED: IV SITE IS FREE FROM REDNESS OR EDMEA. HR IS REG,PULSES ARE STRONG X4, ABD IS SOFT WITH ACTIVE BS. BREATH SOUNDS ARE CLEAR, BILATERALLY. CONTINUE TO OSBERVE AND MONITOR. CALL HAINES WITHIN REACH.
--- NOTE | 2018-07-14 10:30 | NUR ---
PT HAVING A PARACENTESIS COMPLETED.
--- NOTE | 2018-07-14 12:07 | NUR ---
PT RETURNED VIA STRETCHER ACCOMPANIED BY STAFF. IV SITE NOT WORKING HAD TO BE DISCONTINUED, CATHETER INTACT
--- NOTE | 2018-07-14 12:30 | NUR ---
PT HAS RETURNED FROM HAVING PERICENTESIS COMPLETED: THEY TOOK 3.5LITERS OF FLUID OFF. PT'S IV SITE HAS BEEN TAKEN OUT DUE TO NOT WORKING RIGHT. UNFLUSHABLE.. BLEEDING NOTED. FROM GENERALIZED AREAS. CONTINUE TO OBSERVE AND MONITOR.
--- NOTE | 2018-07-14 14:45 | NUR ---
PT IS RESTING IN BED WITH NO DISTRESS NOTED.
--- NOTE | 2018-07-14 16:34 | NUR ---
IV OBTAINED IN [facility], BY GORAN CARMEN IN ER. PT TOLERATED WELL.
--- NOTE | 2018-07-14 16:45 | NUR ---
PT IS RELAXING IN BED WITH NO DISTRESS NOTED. IV SITE IS FREE FROM REDNESS OR EDEMA.
--- NOTE | 2018-07-14 20:44 | NUR ---
PT ASSESSED. BRUISING THROUGHOUT AND EDEMATOUS THROUGHOUT. BILAT LOWER EXT ARE REDDENED. LUNG SOUNDS ARE WHEEZING THROUGHOUT, ABD DIST FIRM W/ACTIVE BOWEL SOUNDS/NON-TENDER. PT REFUSED MEDICATIONS STATING "THEY WILL MAKE ME PEE ALL NIGHT LIKE LAST NIGHT." I DISCUSSED ASSISTANCE W/PT, BUT HE REFUSED MEDICATIONS. PT ASSISTED IN REPOSITIONING. CALL LIGHT IN HAND.
[2018-07-15] VITALS (9 sets, daily range): BP systolic 95–123; BP diastolic 57–68
--- NOTE | 2018-07-15 | NUR ---
PT IS ANXIOUS, AGITATED, ASKING TO GO OUTSIDE. WE EXPLAINED HOSPITAL POLICY TO THE PT AND ALSO EXPLAINED HIS OPTIONS A PT. HE STATED UNDERSTANDING AT EXPRESSED "I AM OKAY."
--- NOTE | 2018-07-15 00:20 | NUR ---
PT CALLED, WHEN ASKED IF HE NEEDED ASSISTANCE HE STATED NO, BUT WE HEARD HIM YELL, SO WE CHECKED PT AND HE WAS IN BED. I ASKED IF HE WAS OKAY HE STATED, "I'M JUST HAVING A FIT." NO OTHER S/O DISTRESS NOTED. I OFFERED ANY COMFORT MEASURES, HE STATED A SANDWICH/PROVIDED REQUESTED. DENIED ANY OTHER NEEDS. PT HAS REMOVED DRESSING TO HIS ABD SKIN TEAR THAT I JUST REPLACED W/CLEAN DRESSING W/IN THE LAST HOUR. HE STATED HE "TOOK IT OFF BECAUSE I'M BORED AND HAVE NOTHING ELSE TO DO."
--- NOTE | 2018-07-15 01:17 | NUR ---
CONSENT SIGNED AND BLOOD TRANSFUSION STARTED AT THIS TIME. PT HAS BEEN EDUCATED ON REACTIONS. I WILL STAY IN ROOM W/PT FIRST 15 MINUTES OF TRANSFUSION.
--- NOTE | 2018-07-15 01:34 | NUR ---
V/S HAVE BEEN ASSESSED, PT IS TOLERATING TRANSFUSION WELL. NO S/O DISTRESS AT THIS TIME. WILL CONTINUE TO MONITOR. PT REQUESTING COFFEE AT THIS TIME.
--- NOTE | 2018-07-15 02:00 | NUR ---
PT IS AWAKE AND CALLING RIVET HAMMER MACHINE OPERATOR LIGHT EVERY 5 MINUTES FOR ONE THING OR THE OTHER. HE IS MOVING AROUND AT THIS TIME AND REQUESTING COFFEE SO I DISCUSSED POC W/PT AND THE NEED FOR HIM TO TRY AND URINATE, HE IS REFUSING TO TRY TO URINATE STATING, "I WILL PEE WHEN I DAMN WELL FEEL LIKE IT." I DISCUSSED THE RISKS OF NOT URINATING OFTEN ENOUGH AND HIS PO INTAKE OF FLUIDS, I ASKED TO BLADDER SCAN HIM AND JUST SEE WHERE HE IS, BUT HE REFUSED TO BE SCANNED. I DISCUSSED THE RISKS AND POSSIBLE NEED FOR A CATHETER AND HE STATED "I WON'T BE SCANNED, I GET A CATHETER AND I'M NOT DOING ANYTHING BUT DRINKING MY COFFEE." DECAF COFFEE PROVIDED TO PT. LIGHTS ON, PT REQUESTED BRIGHT OVERHEAD LIGHT AND TV OFF.
--- NOTE | 2018-07-15 02:45 | NUR ---
BLOOD TRANSFUSION RUNNING/PT APPEARS TO BE TOLERATING WELL. PT URINATED IN URINAL W/ASSISTANCE 50+-CC, HE MISSED AND URINATED SOME ON FLOOR A SMALL AMOUNT W/SMALL AMOUNT IN URINAL. REFUSES TO ALLOW ME TO BLADDER SCAN HIM. I ATTEMPTED TO EDUCATE REGARDING SCAN, MCCABE AND INABILITY TO URINATE. HE IS REFUSING TO BE SCANNED AND STATING THAT HE WILL NOT BE CATHETERIZED OR SCANNED OR ANY OF IT. HE JUST KEEPS STATING THAT HE "WANTS TO BE LEFT THE F___ ALONE." HE STATES THAT HE WANTS BLOOD ONLY.
--- NOTE | 2018-07-15 04:29 | NUR ---
TRANSFUSION COMPLETE AT THIS TIME. V/S ASSESSED. PT SITTING ON SIDE OF THE BED DRINKING DECAF COFFEE.
--- NOTE | 2018-07-15 05:05 | NUR ---
2ND UNIT OF PRBC'S BEGAN AT THIS TIME. UPON ENTERING ROOM, PT WAS SITTING ON SIDE OF THE BED AND HAD ATTEMPTED TO USE URINAL AND DROPPED IT, URINE WAS SPRAYED ON FLOOR, BST, ROOM CLEANED, PT ASSISTED IN CLEANING. WILL CALL HOUSEKEEPING FOR MORE THOROUGH CLEANING.
--- NOTE | 2018-07-15 07:55 | NUR ---
SHIFT CHANGE REPORT, PT IN BED RESTING, AWAKE AND ALERT, NO C/O DISCOMFORT, PRBC INFUSING, CALL HAINES IN REACH.
--- NOTE | 2018-07-15 12:00 | NUR ---
SET UP FOR MEAL SITTING ON SIDE OF BED, BREATHING SHALLOW AND LABORED WITH O2 IN PLACE, CALL HAINES IN REACH.
[2018-07-15 13:50] LABS: HEMATOCRIT 32.2 % (39.0-50.0); HEMOGLOBIN 9.9 g/dl (14.0-18.0); IMMATURE GRANULOCYTES 1.4 % (0.0-5.0); MEAN CELL VOLUME 100.3 fL CALC (80.0-100.0); MEAN CORPUSCULAR HGB 30.8 pG CALC (26.0-32.0); MEAN CORPUSCULAR HGB CONC 30.7 g/L CALC (32.0-36.0); NEUT# 4.35 thou/uL (1.82-7.42); RED BLOOD COUNT 3.21 mill/uL (4.70-6.10); RED CELL DISTRI WIDTH 21.2 % (11.5-15.5)
[2018-07-15 14:23] LABS: ALBUMIN 2.7 g/dL (3.2-5.0); BILIRUBIN, TOTAL 1.2 mg/dL (0.0-1.4); CREATININE 2.2 mg/dL (0.7-1.3); TOTAL PROTEIN 5.7 g/dL (6.3-8.2)
[2018-07-15 14:24] LABS: POTASSIUM 5.2 mmol/l (3.5-5.1)
--- NOTE | 2018-07-15 16:00 | NUR ---
SITTING ON SIDE OF BED, DRESSINGS TO ALL WOUNDS DONE, ASSISTED WITH POSITIONING IN BED, TOLERATED PROCEDURE WELL.
--- NOTE | 2018-07-15 20:18 | NUR ---
PT REPOSITIONED IN BED, NO S/O DISTRESS AT THIS TIME. PT REQUESTING COFFEE W/TWO SUGARS. PT EDUCATED RE DIABETIC DIET. CALL LIGHT AT SIDE.
--- NOTE | 2018-07-15 22:05 | NUR ---
PT MEDICATED ORDERS PROVIDE. POC DISCUSSED W/PT. PT ASSISTED IN REPOSITIONING. RESPIRATORY IN W/PT FOR BREATHING TREATMENT. CALL LIGHT AT BEDSIDE.
[2018-07-16 00:17] VITALS: BP 116/64
--- NOTE | 2018-07-16 00:38 | NUR ---
PT REPOSITIONED AND ASSISTED USING URINAL. ASKING FOR SNACK, REFUSED OFFERED SNACKS STATING HE DOESN'T LIKE ANY OF IT. CALL LIGHT AT BEDSIDE.
--- NOTE | 2018-07-16 01:35 | NUR ---
PT CALLED TO REQUEST COFFEE/DECAF COFFEE PROVIDED. ASSISTED PT REPOSITIONING IN BED. PT IS VERY WEAK. PENILE AND SCROTAL EDEMATOUS AND WHEEPING/ELEVATED. LOWER EXT BILAT ARE EDEMATOUS AND WHEEPING.
--- NOTE | 2018-07-16 03:35 | NUR ---
PT CALLED TO REPORT ASSISTANCE. UPON ENTERING ROOM, PT HAD REMOVED DRESSING IV SITE AND DISCONNECTED IV FLUIDS. POC DISCUSSED AND PT REFUSED TO HAVE IV FLUIDS ADMINISTERED STATING THAT HE DIDN'T WANT IT. IT STATED HE WANTED IV OUT, BUT AFTER DISCUSSING POC AND MEDICATIONS, HE AGREED TO KEEP IV ACCESS.
--- NOTE | 2018-07-16 04:40 | NUR ---
PT CALLED FOR ASSISTANCE USING URINAL/PROVIDED.
--- NOTE | 2018-07-16 04:50 | NUR ---
PT CALLED TO REQUEST ADJUST BED AND REQUESTED COFFEE.
--- NOTE | 2018-07-16 05:20 | NUR ---
PT CALLED TO REQUEST COFFEE AGAIN.
--- NOTE | 2018-07-16 05:35 | NUR ---
PT CALLED TO REQUEST ASSISTANCE PUTTING HEAD OF BED DOWN, I SHOWED PT HOW TO CONTROL BED ONCE AGAIN, HE DEMONSTRATED USAGE.
[2018-07-16 05:36] LABS: HEMATOCRIT 32.7 % (39.0-50.0); HEMOGLOBIN 10.2 g/dl (14.0-18.0); IMMATURE GRANULOCYTES 0.3 % (0.0-5.0); MEAN CELL VOLUME 100.3 fL CALC (80.0-100.0); MEAN CORPUSCULAR HGB 31.3 pG CALC (26.0-32.0); MEAN CORPUSCULAR HGB CONC 31.2 g/L CALC (32.0-36.0); NEUT# 5.22 thou/uL (1.82-7.42); RED BLOOD COUNT 3.26 mill/uL (4.70-6.10); RED CELL DISTRI WIDTH 21.3 % (11.5-15.5)
--- NOTE | 2018-07-16 05:50 | NUR ---
PT CALLED TO REQUEST ASSISTANCE W/BED AND REPOSITIONING. ALSO REQUESTED COFFEE, I EXPLAINED THAT WE DID NOT HAVE ANY MADE AND ALL AIDES AND NURSING WERE DOING REPORT AND PASSING MEDS AT THIS TIME. WE WILL PROVIDE SOON WE ARE ABLE TO GET SOME MADE.
[2018-07-16 05:54] VITALS: BP 115/51
--- NOTE | 2018-07-16 09:30 | NUR ---
PT SITTING ON BSC, NO SIGNS OF DISTRESS NOTED, RESP EVEN AND UNLABORED. PT ALERT AND ORIENTED X3, PT HAS ASCITES, EDEMA TO BLE, AND SCROTUM, ENCOURAGED ELEVATION. DISCUSSED POC, DRESSINGS TO TRUNK AND BACK, PT HAS ECCYMOSIS AND MULTIPLE SKIN TEARS AND BRUISING.CALL LIGHT IN REACH,CONTINUE TO MONITOR.
[2018-07-16] MEDS ORDERED: BUDESONID2 IN (09:52)
--- NOTE | 2018-07-16 10:00 | NUR ---
TO SEE PT, DISCUSSED PLANS FOR DISCHARGE, SPOKE TO [facility] AND INFORMED THEM PT TO BE DISCHARGED, ARRANGMENTS MADE FOR PARTNERSHIP MARKETING MANAGER.
--- NOTE | 2018-07-16 10:45 | NUR ---
Discharge instructions given. Patient verbalizes understanding of same. Discharged in stable condition via Wheel[facility] to [facility] with [facility]. All belongings sent with pt.
== END 2018-07-16 10:45 ==
LOC: MS2 10:52
PROVIDERS: ADMIT Internal Medicine Geriatric Medicine; ATTEND Internal Medicine Geriatric Medicine
PROC: 30233N1 Transfusion of Nonautologous Red Blood Cells into Peripheral Vein, Percutaneous Approach (ICD-10-PCS; principal; 2018-07-13)
PROC: 30233N1 Transfusion of Nonautologous Red Blood Cells into Peripheral Vein, Percutaneous Approach (ICD-10-PCS; 2018-07-14)
PROC: 0W9G3ZZ Drainage of Peritoneal Cavity, Percutaneous Approach (ICD-10-PCS; 2018-07-14)
PROC: BW40ZZZ Ultrasonography of Abdomen (ICD-10-PCS; 2018-07-14)
PROC: 30233N1 Transfusion of Nonautologous Red Blood Cells into Peripheral Vein, Percutaneous Approach (ICD-10-PCS; 2018-07-15)
PROC: 30233N1 Transfusion of Nonautologous Red Blood Cells into Peripheral Vein, Percutaneous Approach (ICD-10-PCS; 2018-07-15)
DX: K74.60 Unspecified cirrhosis of liver (principal); R18.8 Other ascites; D64.9 Anemia, unspecified; I11.0 Hypertensive heart disease with heart failure; I50.33 Acute on chronic diastolic (congestive) heart failure; I25.10 Atherosclerotic heart disease of native coronary artery without angina pectoris; E11.51 Type 2 diabetes mellitus with diabetic peripheral angiopathy without gangrene; F03.90 Unspecified dementia, unspecified severity, without behavioral disturbance, psychotic disturbance, mood disturbance, and anxiety; J44.1 Chronic obstructive pulmonary disease with (acute) exacerbation; K21.9 Gastro-esophageal reflux disease without esophagitis; K76.6 Portal hypertension; I42.9 Cardiomyopathy, unspecified; F17.210 Nicotine dependence, cigarettes, uncomplicated; R00.1 Bradycardia, unspecified; R60.0 Localized edema; N43.3 Hydrocele, unspecified; Z91.19 Patient's noncompliance with other medical treatment and regimen; Z99.81 Dependence on supplemental oxygen
CPT/HCPCS: G0378; P9016

== ENCOUNTER 2018-07-21 13:55 | Inpatient (IN) | payer MEDICARE, OTHER ==
[~2018-07-21] VITALS: Ht 180.3 cm; Wt 118.6 kg
[~2018-07-21 13:55] MED LIST changes: +SEROQUEL25 MG PO
[2018-07-21 14:11] VITALS: BP 119/64
--- NOTE | 2018-07-21 14:36 | NUR ---
PT ARRIVED ON UNIT @ 1411 VIA W/C BY VOLUNTEER, ALERT AND ORIENTED X2, C/O PAIN TO WUUNDS ON BACK, WOUNDS DRESSED WITH AQUACEL SPONGE DRESSINGS, MODERATE AMOUNT BLOODY DRAINAGE PRESENT ON DRESSING. SETTLED IN BED,ORIENTED TO ROOM AND CALL HAINES, REQUESTING SOMETHING TO EAT AT THIS TIME, GIVEN SNACK, WILL CONTINUE TO MONITOR.
--- NOTE | 2018-07-21 14:41 | NUR ---
I SPOKE TO MISTY HURD FROM [facility] AND SHE VERIFIED THE AIR MATRESS ORDERED @1435. I ORDERED A REGULAR ACCU CARE BED 39" AND THE CONFIRMATION NUMBER IS [id number].
[2018-07-21 16:05] VITALS: BP 114/42
[2018-07-21 16:05] LABS: HEMATOCRIT 32.6 % (39.0-50.0); HEMOGLOBIN 9.8 g/dl (14.0-18.0); IMMATURE GRANULOCYTES 0.4 % (0.0-5.0); MEAN CELL VOLUME 101.9 fL CALC (80.0-100.0); MEAN CORPUSCULAR HGB 30.6 pG CALC (26.0-32.0); MEAN CORPUSCULAR HGB CONC 30.1 g/L CALC (32.0-36.0); NEUT# 4.36 thou/uL (1.82-7.42); RED BLOOD COUNT 3.2 mill/uL (4.70-6.10); RED CELL DISTRI WIDTH 20.4 % (11.5-15.5)
[2018-07-21] MEDS ORDERED: BRILINTA90 MG PO (16:07)
[2018-07-21 16:32] LABS: CREATININE 1.9 mg/dL (0.7-1.3)
[2018-07-21 16:34] LABS: POTASSIUM 5.4 mmol/l (3.5-5.1)
--- NOTE | 2018-07-21 16:55 | NUR ---
S: MELVIN SAGE is a 72 M who presents with POSSIBLE SEPSIS. He has a history of NO HX AT THE TIME OF NOTE (DIRECT ADMIT). All medications in patient's chart were reviewed. O: VS: BP 119/64, P 68, RR 24,T 96.8 W 118 kg, HT 71 IN, Scr= 1.9 ,CrCl= 47 ml/min ADJUSTED FOR WEIGHT A: Blood culture <is pending/show> which is sensitive to <>. Urine culture <is pending/show> which is sensitive to <>. P: Patient is on VANCOMYCIN . Vancomycin ordered for pharmacy to dose. Start Vancomycin 1500MG IV Q24H. Vancomycin trough is drawn before the 4th dose on 07/24/18 @0830. Vancomycin goal trough is between 15-20 mcg/ml. Pharmacy will follow and or advise on antibiotics use as needed. MAGALY PABLO PHARMD
[2018-07-21 19:07] VITALS: BP 100/63
[2018-07-21 19:13] LABS: URINE BILIRUBIN - DIPSTICK NEGATIVE (NEGATIVE); URINE BLOOD DIPSTICK NEGATIVE (NEGATIVE); URINE COLOR YELLOW; URINE GLUCOSE - DIPSTICK NEGATIVE (NEGATIVE); URINE KETONE NEGATIVE (NEGATIVE); URINE LEUK ESTERASE TRACE (NEGATIVE); URINE NITRITE - DIPSTICK NEGATIVE (Negative); URINE PROTEIN - DIPSTICK NEGATIVE (NEG-TRACE)
--- NOTE | 2018-07-21 19:15 | NUR ---
REPORT FROM MARISELA CARMEN. PT RESTING IN BED. O2 AT 2L/M RESPIRATIONS SHALLOW. IV SITE APPEARS HEALTHY INFUSING IV ABT AT THIS TIME. PT C/O GENERALIZED PAIN NO PRN MEDICATION ORDERED WILL NOTIFY PHYSICIAN. ATTEMPTED TO ASSIST PT TO REPOSITION REFUSED AT THIS TIME. ASSISTED PT WITH URINAL 100ML CLEAR YELLOW URINE VOIDED AT THIS TIME. PT HAS GENERALIZED EDEMA. DRESSING TO SKIN TEARS CDI. DISCUSSED POC. PT VERBALIZED UNDERSTANDING. CALL LIGHT WITHIN REACH. WILL CONTINUE TO MONITOR.
--- NOTE | 2018-07-21 20:08 | NUR ---
DR. VIVAR NOTIFIED OF PT PAIN. NEW ORDER RECIEVED FOR DILAUDID 1MG IV PRN Q4H. WILL MEDICATED ONCE PROFILED BY PHARMACY.
--- NOTE | 2018-07-21 23:57 | NUR ---
PT RESTING IN BED. RESPIRATIONS EVEN AND UNLABORED. NO S/S OF DISTRESS NOTED. CALL LIGHT WITHIN REACH. WILL CONTINUE TO MONITOR.
--- NOTE | 2018-07-22 03:28 | NUR ---
PT ASSISTED TO BSC X2 PERSON ASSIST. DRESSING CHANGED. PT TOLERATED WELL. LINENS CHANGED. PT REFUSED BATH. PT ASSISTED BACK TO BED. CALL LIGHT WITHIN REACH. WILL CONTINUE TO MONITOR.
[2018-07-22 04:30] VITALS: BP 125/56
[2018-07-22 06:14] LABS: BILIRUBIN, TOTAL 0.7 mg/dL (0.0-1.4); TOTAL PROTEIN 6.2 g/dL (6.3-8.2)
[2018-07-22 06:18] LABS: POTASSIUM 5.2 mmol/l (3.5-5.1)
--- NOTE | 2018-07-22 06:35 | NUR ---
PT REFUSING TO GO DOWN TO RADIOLOGY AT THIS TIME FOR XRAY.
[2018-07-22 06:36] LABS: HEMOGLOBIN 9.6 g/dl (14.0-18.0); IMMATURE GRANULOCYTES 0.5 % (0.0-5.0); MEAN CELL VOLUME 103.1 fL CALC (80.0-100.0); MEAN CORPUSCULAR HGB CONC 29.1 g/L CALC (32.0-36.0); NEUT# 4.41 thou/uL (1.82-7.42); RED BLOOD COUNT 3.2 mill/uL (4.70-6.10); RED CELL DISTRI WIDTH 20.2 % (11.5-15.5)
--- NOTE | 2018-07-22 08:05 | NUR ---
SHIFT CHANGE REPORT, PT SLEEPING IN SUPINE POSITION, BREATHING LABORED WITH ASSESSORY MUSCLES AT THIS TIME, O2 @ 2L VIA NC IN PLACE, CALL HAINES IN REACH.
--- NOTE | 2018-07-22 11:23 | NUR ---
STILL SLEEPING SINCE THIS AM, NURSE TRIED TO AROUSE HIM TO STRAIGHTEN ARM BUT HE RESPONDED ARROGANTLY STATING, "LEAVE ME ALONE, I WANT TO SLEEP". AWOKE FEW MINUTES AFTER ASKING FOR ASSISTANCE WITH ELIMINATION, WILL CONTINUE TO MONITOR AND ADDRESS NEEDS.
[2018-07-22 13:14] VITALS: BP 125/70
--- NOTE | 2018-07-22 14:13 | NUR ---
ASSISTED TO BSC THEN TO W/C AND IS BEING TRANSFERRED TO X-RAY VIA W/C BY STAFF. ANXIOUS AND REQUESTING CIGARETTE AT THIS TIME, OFFERED NICOTINE PATCH BUT ADAMANTLY REFUSED STATING HE DOES NOT WANT A PATCH HE WANTS A CIGARETTE.
--- NOTE | 2018-07-22 17:08 | NUR ---
ASSISTED TO BED AFTER SHOWER, DRESSINGS ON WOUNDS CHANGED. BLADDER SCANNED AFTER VOIDING 50CC URINE, 347CC REMAINING IN BLADDER, PT ADAMANTLY REFUSED HAVING MCC[employer]E CATHETER PLACED WHICH HAS BEEN ORDERED SINCE YESTERDAY WHEN HE ALSO REFUSED IT.
[2018-07-22 19:00] VITALS: BP 138/67
--- NOTE | 2018-07-22 19:01 | NUR ---
REPORT FROM MARISELA CARMEN. PT RESTING IN BED. NOT COOPERATING WITH STAFF AT THIS TIME. PT DISGRUNTLED WITH STAFF DUE TO NOT BEING ABLE TO GO OUTSIDE AND SMOKE. STAFF OFFERED NICOTENE PATCH PT REFUSED. PT NOT IN ANY DISTRESS AT THIS TIME. CALL LIGHT WITHIN REACH. WILL CONTINUE TO MONITOR.
--- NOTE | 2018-07-22 20:20 | NUR ---
PT PULLED OUT IV SITE AT THIS TIME. RETIREMENT ASSISTANT ATTEMPTED TO OBTAIN NEW IV SITE AT THIS TIME. PT BEING RUDE AND CUSSING STAFF. PT REQUESTED DIFFERENT NURSE TO START IV. PT DENIES ANY PAIN OR DISCOMFORT. PT DOES NOT WISH TO TALK WITH RETIREMENT ASSISTANT ABOUT HOW HE FEELS AT THIS TIME. NO DISTRESS NOTED. CALL LIGHT WITHIN REACH. WILL GET ANOTHER NURSE TO OBTAIN IV SITE SOON POSSIBLE.
--- NOTE | 2018-07-22 21:03 | NUR ---
Peripheral IV started. IV access obtained with #22 AutoGuard at Right Hand with 1 IV stick attempts by Julee CARMEN. Flushes easily with good blood return. PT tolerated well.
--- NOTE | 2018-07-22 21:15 | NUR ---
PT IN BETTER MOOD NOW AND COOPERATING WITH STAFF. PT C/O GENERALIZED PAIN 02/22. MEDICATED WITH PRN IV DILAUDID. PT HAS NO OTHER WANTS OR NEEDS AT THIS TIME. O2 AT 2L/M VIA NC. DRESSING INTACT. PT REFUSED DRESSING CHANGE AT THIS TIME. DISCUSSED POC. PT VERBALIZED UNDERSTANDING. CALL LIGHT WITHIN REACH. WILL CONTINUE TO MONITOR.
--- NOTE | 2018-07-23 01:25 | NUR ---
PT RESTING IN BED WITH EYES CLOSED. O2 AT 2L/M RESPIRATIONS EVEN AND UNLABORED. NO S/S OF PAIN OR DISTRESS NOTED. CALL LIGHT WITHIN REACH. WILL CONTINUE TO MONITOR.
[2018-07-23 04:11] VITALS: BP 113/67
--- NOTE | 2018-07-23 05:00 | NUR ---
PT ASSISTED TO BSC. LINENS CHANGED. PT REFUSED BATH. DRESSINGS FALLING OFF AND SATURATED WITH SEROUS DRAINAGE. NEW DRESSINGS APPLIED. PETROLEUM GAUZE, COVERED WITH ABD PADS AND SECURED WITH TAPE. PT TOLERATED WELL. EXERTIONAL SOB. PT REMAINS ON 02 VIA GA. PT ASSISTED BACK TO BED X2 PERSON ASSIST PT VERY UNSTEADY ON FEET. GENERALIZED WHEEPING EDEMA NOTED. CALL LIGHT WITHIN REACH. WILL CONTINUE TO MONITOR.
[2018-07-23 06:01] LABS: CREATININE 2.2 mg/dL (0.7-1.3)
[2018-07-23 06:02] LABS: HEMATOCRIT 32.8 % (39.0-50.0); HEMOGLOBIN 9.5 g/dl (14.0-18.0); IMMATURE GRANULOCYTES 0.4 % (0.0-5.0); MEAN CELL VOLUME 105.8 fL CALC (80.0-100.0); MEAN CORPUSCULAR HGB 30.6 pG CALC (26.0-32.0); NEUT# 3.82 thou/uL (1.82-7.42); RED BLOOD COUNT 3.1 mill/uL (4.70-6.10); RED CELL DISTRI WIDTH 19.9 % (11.5-15.5)
[2018-07-23 06:09] LABS: POTASSIUM 5.6 mmol/l (3.5-5.1)
[2018-07-23 07:46] VITALS: BP 123/53
--- NOTE | 2018-07-23 08:14 | NUR ---
SHIFT CHANGE REPORT, PT SLEEPING, BREATHING EVEN WITH ASSESSORY MUSCLES, O2 @ 2L VIA NC IN PLACE, NO SIGN DISTRESS, CALL HAINES IN REACH.
--- NOTE | 2018-07-23 09:27 | NUR ---
DR VIVAR HERE ROUNDING, PT ASKED IF HE CAN SMOKE, INFIRMED HIM HE CAN SMOKE IF HE CAN GET OOB AND AMBULATE OUTSIDE BY HIMSELF, DR ALSO OFFERED HIM NICOTINE PATCH WHICH HE REFUSED.
--- NOTE | 2018-07-23 12:20 | NUR ---
IN BED HAVING MEAL AT THIS TIME, VORACIOUS APPETITE, NO C/O PAIN AT THIS TIME, ALL NEEDS (EXCEPT NEED TO SMOKE) ADDRESSED, CALL HAINES IN REACH.
[2018-07-23 17:00] VITALS: BP 110/70
[2018-07-23 19:30] VITALS: BP 134/60
[2018-07-23 20:00] VITALS: BP 134/60
--- NOTE | 2018-07-23 20:12 | NUR ---
Patient alert and oriented with good respiratory pattern at the time of this note. Does not report any pain at the time of this note. Generalized edema and brusing are observed. The patient is educated regarding s diet and diabetes. Patient verbalized understanding.
--- NOTE | 2018-07-23 21:57 | NUR ---
Patient alert and oriented with good breathing pattern at the time of this note. Does not report any pain at the time of this note. Skin not intact. Patient refuses to continue with oxygen cannula to 2 liters and is removed, educated and directed on the need to continue with oxygen but still refuses. Patient is observed with a grocery specialist in the hands patient is observed annoying by smoking, is oriented on the imminent danger in case he tries to light a cigarette in the room he refers to understand but does not want to give me the grocery specialist, he is informed of the situation to the converter supervisor and security.
--- NOTE | 2018-07-24 00:43 | NUR ---
Patient alert and oriented with good breathing pattern at the time of this note. Does not report any pain at the time of this note. Skin not intact. Patient refuses to continue with oxygen cannula to 2 liters. Patient removed line iv. It is cannulated under aseptic measures with angio # 22 in the right hand, only one patient attempt tolerates well.
--- NOTE | 2018-07-24 04:20 | NUR ---
Stable patient at the time of this note no change is observed.
[2018-07-24 04:34] VITALS: BP 108/55
[2018-07-24 05:19] LABS: HEMATOCRIT 33.4 % (39.0-50.0); HEMOGLOBIN 9.6 g/dl (14.0-18.0); IMMATURE GRANULOCYTES 0.5 % (0.0-5.0); MEAN CELL VOLUME 104.4 fL CALC (80.0-100.0); MEAN CORPUSCULAR HGB CONC 28.7 g/L CALC (32.0-36.0); NEUT# 4.29 thou/uL (1.82-7.42); RED BLOOD COUNT 3.2 mill/uL (4.70-6.10); RED CELL DISTRI WIDTH 19.5 % (11.5-15.5)
[2018-07-24 05:40] LABS: ALBUMIN 3.3 g/dL (3.2-5.0); BILIRUBIN, TOTAL 0.5 mg/dL (0.0-1.4); CREATININE 2.5 mg/dL (0.7-1.3); TOTAL PROTEIN 6.8 g/dL (6.3-8.2)
[2018-07-24 05:41] LABS: POTASSIUM 5.8 mmol/l (3.5-5.1)
--- NOTE | 2018-07-24 05:49 | NUR ---
Critical value of BUN [address] Saxena. No medical order is received.
--- NOTE | 2018-07-24 07:00 | NUR ---
REPORT RECEIVED FROM KERMIT MARROQUIN;PT APPEARS TO BE SLEEPING IN SEMI FOWLERS POSITION;RESPIRATIONS APPEAR EVEN AND UNLABORED;NO S/S OF DISTRESS NOTED;TELE MONITORING IN PLACE;FALL PRECAUTIONS NOTED WITH BED IN THE LOWEST POSITION AND CALL LIGHT IN REACH;WILL CONTINUE TO MONITOR
[2018-07-24 07:59] VITALS: BP 101/64
--- NOTE | 2018-07-24 08:00 | NUR ---
AT BEDSIDE DISCUSSING POC.
--- NOTE | 2018-07-24 08:15 | NUR ---
PT RESTING IN LEFT SIDE LAYING POSITION,ALERT AND ORIENTED X3;VS OBTAINED;PT REFUSING ASSESSMENT,MEDICATION ADMINISTRATION AND WOUND CARE;PUSHING STAFF MEMBERS OUT OF THE WAY WHEN ASSISTING IN LINEN/GOWN CHANGE; NOTIFIED AND AT BEDSIDE;PER DR VIVAR "IF HE DOES NOT WANT YOU TO TAKE CARE OF HIM LEAVE HIM HOW HE IS";RESPIRATIONS APPEAR LABORED,SHALLOW ON O2 @ 2L VIA NC HUM;WHEN ASKED IF PT IS HAVING ANY PAIN, PT POINTS AT WRITTER AND STATES "YOU ARE A PAIN TO ME";ABDOMEN APPEARS DISTENDED AND FIRM;MULTIPLE SKIN TEARS NOTED THROUGHOUT BODY, BACK AND ARMS;#22G TO RIGHT HAND INFUSING NS @ KVO PER ORDER;AIR MATTRESS NOTED;PT ENCOURAGED TO CALL FOR ASSISTANCE IF NEEDED;FALL PRECAUTIONS IN PLACE WITH CALL LIGHT IN REACH;WILL CONTINUE TO MONITOR
--- NOTE | 2018-07-24 08:45 | NUR ---
PT REFUSED LAB DRAW FOR VANCO THROUGH.PHARMACY NOTIFIED.
--- NOTE | 2018-07-24 11:30 | NUR ---
PT RESTING IN SEMI FOWLERS POSITION;RESPIRATIONS REMAIN SHALLOW ON O2 @ 2L VIA NC;PT REFUSED ACCUCHECK AT THIS TIME STATING "NO,CAUSE I SAID SO";IV FLUIDS CONTINUE TO INFUSE TO RIGHT HAND WITH EASE;ENCOURAGED TO CALL FOR ASSISTANCE IF NEEDED;CALL LIGHT IN REACH;WILL CONTINUE TO MONITOR
--- NOTE | 2018-07-24 13:50 | NUR ---
PT YELLING OUT FOR HELP, UPON ENTERING THE ROOM PT IS LAYING IN BED WITH IV REMOVED WITH CATHETER INTACT AND BLOOD THROUGH GOWN AND LINENS;CALL LIGHT IS RESTING ON PTS STOMACH;WHEN ASKED ABOUT HOW IV SITE BECAME REMOVED PT STATES "I DONT KNOW BABY";PT RE-EDUCATED CORPORATE EXECUTIVE LIGHT SYSTEM;NEW LINENS AND GOWN PROVIDED;PT REFUSES NEW IV SITE AT THIS TIME;WILL CONTINUE TO MONITOR
--- NOTE | 2018-07-24 14:30 | NUR ---
PT REQUESTS ICE CREAM,WRITTER NOTIFIED PT THAT I NEEDED AN ACCURATE BLOOD SUGAR BEFORE HAND AND PT AGREED;ACCUCHECK OF 77 OBTAINED.
--- NOTE | 2018-07-24 15:53 | NUR ---
S: MELVIN SAGE is a 72 M who presents with COPD exacerbation. He has a history of CAD, CHF, HTN, COPD, Dementia, GERD. All medications in patient's chart were reviewed. O: VS: BP 101/64 mmHg, P 92 bpm, RR 22 bpm, T 98.7 F W 119.408 kg, HT 5' 11", Scr= 2.5 mg/dL, CrCl= 36.14 ml/min A: Blood culture shows no growth after 48 hours Wound culture shows no growth after 24 hours P: Patient is on Vancomycin 1500mg IV Q24H. Vancomycin ordered for pharmacy to dose. Patient refusing IV medications, unable to obtain trough. Vancomycin level will be ordered prior to reinitiating medication. Vancomycin goal trough is between <15-20 mcg/ml>. Pharmacy will follow and or advise on antibiotics use as needed.
--- NOTE | 2018-07-24 16:20 | NUR ---
PT RESTING IN SEMI FOWLERS POSITION WITH GOWN AND BLANKETS THROWN ON THE FLOOR, PT STATES "THEY SMELL LIKE PISS";PT HAD VOIDED IN THE BED AND STATES "THE ONLY WAY YOU ARE GOING TO CLEAN ME IS IF YOU LIFT ME YOURSELF, THATS YOUR JOB.";RESPIRATIONS SHALLOW ON RA,PT REFUSES TO WEAR O2 ORDERED;NO IV SITE AT THIS TIME;SAFETY PRECAUTIONS REINFORCED,WILL RE-ATTEMPT TO BATHE PATIENT;FALL PRECAUTIONS IN PLACE WITH CALL LIGHT IN REACH;WILL CONTINUE TO MONITOR
[2018-07-24 17:19] VITALS: BP 110/56
--- NOTE | 2018-07-24 19:00 | NUR ---
Received report from nurse Fuchs, patient resting in bed, refuses care, denies pain and discomfort call light at reach.
[2018-07-24 19:05] VITALS: BP 90/56
--- NOTE | 2018-07-24 20:35 | NUR ---
Patient alert and oriented, able to make needs known, agreed to be changed, skin tears on the back noted, dressing changed done, and inserted new IV line g22 on rt forearm, assisted back to bed, call light at reach
[2018-07-24 20:46] VITALS: BP 110/58
--- NOTE | 2018-07-25 | NUR ---
Patient resting in bed,. c/o gen body pain, prn dilaudid given was effective, pt currently resting in bed, eyes closed call light at reach.
[2018-07-25 04:17] VITALS: BP 110/69
--- NOTE | 2018-07-25 05:18 | NUR ---
Patient resting in bed, no discomforts noted at this time, contimuous on O2 at 2lpm, even unlabored breathing call light at reach.
[2018-07-25 05:39] LABS: CREATININE 2.6 mg/dL (0.7-1.3)
[2018-07-25 06:00] LABS: POTASSIUM 5.9 mmol/l (3.5-5.1)
--- NOTE | 2018-07-25 06:38 | NUR ---
Received a phonecall from Rosalba from Lab at 0587 about Critically high BUN 93, and potassium 5.9. Called Dr. Saxena around 0614 and ordered to increase IVF rate of Normal Saline to 50cc/hr. Order fax to pharmacy
[2018-07-25 08:00] VITALS: BP 122/53
--- NOTE | 2018-07-25 09:29 | NUR ---
MEDICATED PT WITH ZOFRAN SEE EMAR. PT VOMITED 60ML. PT IS ON HIS LEFT SIDE . AIR MATTRESS IN PLACE. ASESSMENT DONE. IVF INFUSING WELL. PT DENIES ANY OTHER NEEDS AT THIS TIME. CALL LIGHT IN REACH.
--- NOTE | 2018-07-25 12:35 | NUR ---
PT IS RESTING IN HIS LEFT. WITH O2 AT 2L VIA NC. PT STATED PAIN IN ABD 02/22. TOLD I WILL CHECK WHEN NEXT PAIN MEDICATIONS IS DUE. PT DENIES ANY OTHER NEEDS AT THIS TIME. CALL LIGHT IN REACH.
[2018-07-25 16:00] VITALS: BP 98/73
--- NOTE | 2018-07-25 16:00 | NUR ---
PT IS RESTING IN BED WITH NO S/S OF DISTRESS NOTED. PT DENIES ANY NEEDS AT THIS TIME. CALL LIGHT IN REACH.
--- NOTE | 2018-07-25 18:55 | NUR ---
RECEIVED RREPORT FROM NURSE SANDRA, PATIENT RESTING IN BED, REMAINS ON 02 AT 2LPM,CALL LIGHT AT REACH.
[2018-07-25 19:00] VITALS: BP 97/61
--- NOTE | 2018-07-25 21:17 | NUR ---
PATIENT WAS C/O INDIGESTION, CALLED DR. VIVAR AND MADE ORDERS, ORDERS FAX TO [facility].
[2018-07-25 22:05] VITALS: BP 108/62
--- NOTE | 2018-07-26 00:49 | NUR ---
PATIENT CURRENTLY RESTING IN BED, EYES CLOSED, REMAINS ON 02 AT 2LPM, CALL LIGHT AT REACH
[2018-07-26 04:23] VITALS: BP 103/69
--- NOTE | 2018-07-26 04:48 | NUR ---
PATIENT AWAKE RESTING IN BED, DENIES PAIN OR DISCOMFORTS AT THIS TIME, CALL LIGHT AT REACH, INCONTINENT CARE PROVIDED.
[2018-07-26 08:00] VITALS: BP 117/68
--- NOTE | 2018-07-26 08:15 | NUR ---
DR. VIVAR AT BEDSIDE TO DISCUSS POC WITH PT. MD STATED THAT HE WOULD ORDER GHAZALA MOUTH . TOLD MD THAT PT HAD REFUSED IT LAST NIGHT. PT TOLD MD THAT HE WOULD TAKE IT. ASSESSMENT DONE. D51/2NS 100ML/HR INFUSING WELL. 02 2L VIA NC. PT STATED PAIN 8/10 BUT REFUSED PAIN MEDICATION AT THIS TIME. PT REFUSING BREAKFAST AT THIS TIME. PT DENIES ANY OTHER NEEDS AT THIS TIME. CALL LIGHT IN REACH.
--- NOTE | 2018-07-26 08:40 | NUR ---
PT REFUSED GHAZALA MOUTH WASH AND CALL LIGHT IN REACH.
--- NOTE | 2018-07-26 11:50 | NUR ---
PT TOOK OFF HIS GOWN,BLANKET AND THROW IT IN THE FLOOR. PT STATED IM WET. LARGE AMOUNT OF URINE IN PAD. JASPER CARE DONE X2 PERSON ASISST TO TURN PT. BED CHANGE DONE. AIR MATTRESS IN PLACE. PT DENIES ANY OTHER NEEDS AT THIS TIME. CALL LIGHT IN REACH.
--- NOTE | 2018-07-26 16:00 | NUR ---
PT IS RESTING ON HIS LEFT SIDE IN BED WITH NO S/S OF DISTRESS NOTED. CALL LIGHT IN REACH.
[2018-07-26 16:26] VITALS: BP 100/65
[2018-07-26 19:18] VITALS: BP 112/65
--- NOTE | 2018-07-26 19:44 | NUR ---
REPORT FROM JOCY. PT RESTING IN BED WITH EYES CLOSED. O2 VIA NC. NO DISTRESS NOTED. AIR MATTRESS APPEARS TO BE FUNCTIONING PROPERLY. CALL LIGHT WITHIN REACH. WILL CONTINUE TO MONITOR.
--- NOTE | 2018-07-26 23:41 | NUR ---
REPOSITIONED PT IN BED WITH PILLOWS PT REQUESTED. CALL LIGHT WITHIN REACH. WILL CONTINUE TO MONITOR.
[2018-07-27 03:45] VITALS: BP 105/55
--- NOTE | 2018-07-27 04:00 | NUR ---
TRANSFERED PT FROM BED TO CHAIR X3 PERSON ASSIST AND GAIT BELT. LINENS CHANGED. PT VOIDED IN URINAL. CALL LIGHT WITHIN REACH. IVF INFUSING WITHOUT DIFFICULTY. WILL CONTINUE TO MONITOR.
[2018-07-27 07:40] VITALS: BP 121/58
--- NOTE | 2018-07-27 07:40 | NUR ---
ASSESSMENT IS COMPLETED: IV SITE IS FREE FROM REDNESS OR EDEMA. HR IS REG,PULSES ARE STRONG X4, ABD IS DISTENDED AND SOFT , BREATH SOUNDS ARE CLEAR,BILATERALLY. +2 PITTING EDEMA NOTED ON LEFT LEG. DRESSING ON BACK IS CDI. CONTINUE TO OSEBRVE AND MONITOR.
[2018-07-27 08:08] LABS: HEMATOCRIT 28.9 % (39.0-50.0); HEMOGLOBIN 8.9 g/dl (14.0-18.0); IMMATURE GRANULOCYTES 0.4 % (0.0-5.0); MEAN CELL VOLUME 99.7 fL CALC (80.0-100.0); MEAN CORPUSCULAR HGB 30.7 pG CALC (26.0-32.0); MEAN CORPUSCULAR HGB CONC 30.8 g/L CALC (32.0-36.0); NEUT# 4.41 thou/uL (1.82-7.42); RED BLOOD COUNT 2.9 mill/uL (4.70-6.10); RED CELL DISTRI WIDTH 19.1 % (11.5-15.5)
[2018-07-27 08:19] LABS: BILIRUBIN, TOTAL 0.7 mg/dL (0.0-1.4); CREATININE 2.7 mg/dL (0.7-1.3); TOTAL PROTEIN 6.3 g/dL (6.3-8.2)
--- NOTE | 2018-07-27 08:24 | NUR ---
RECEIVED A CALL FROM LAB RE: CRITICAL RESULT OF BUN 97. ON THE UNIT. INFORMED NO CHANGE.
[2018-07-27 08:29] LABS: POTASSIUM 6.1 mmol/l (3.5-5.1)
[2018-07-27] MEDS ORDERED: QUETIAPINE FUMA25 MG PO (08:55)
--- NOTE | 2018-07-27 08:55 | NUR ---
PT TOOK IV OUT, MADE AWARE.
--- NOTE | 2018-07-27 12:00 | NUR ---
PT IS RELAXING IN BED REFUSES TO EAT OR DRINK ANYTHING.
--- NOTE | 2018-07-27 12:24 | NUR ---
PT'S BS IS 64 REFUSES TO DRINK ANY FLUIDS AT THIS TIME.
--- NOTE | 2018-07-27 13:18 | NUR ---
ATTEMPTED TO GIVE REPORT TO [facility] NURSE UNAVAILABLE AT THIS TIME.
--- NOTE | 2018-07-27 13:29 | NUR ---
I spoke with Ana from [facility] matress service and she verified the matress to be picked up today at 1330. The confirmation number is [id number].
--- NOTE | 2018-07-27 13:32 | NUR ---
SPOKE WITH JANET TROY AT [facility] GAVE REPORT. VERBALIZED UNDERSTANDING., FOREWARNED RE: ASSISTANCE OUT OF THE WC.,
--- NOTE | 2018-07-27 13:49 | NUR ---
PT WAS TAKEN BY WC TO [facility] WITH ALL BELONGINGS AND PAPERS.
== END 2018-07-27 13:16 | DRG 291 ==
LOC: MS2 13:55
PROVIDERS: ADMIT Internal Medicine Geriatric Medicine; ATTEND Internal Medicine Geriatric Medicine
DX: I11.0 Hypertensive heart disease with heart failure (principal); J96.01 Acute respiratory failure with hypoxia; J44.1 Chronic obstructive pulmonary disease with (acute) exacerbation; R18.8 Other ascites; K76.6 Portal hypertension; I50.23 Acute on chronic systolic (congestive) heart failure; I42.9 Cardiomyopathy, unspecified; I89.0 Lymphedema, not elsewhere classified; K74.60 Unspecified cirrhosis of liver; I25.10 Atherosclerotic heart disease of native coronary artery without angina pectoris; K72.90 Hepatic failure, unspecified without coma; E11.51 Type 2 diabetes mellitus with diabetic peripheral angiopathy without gangrene; L13.9 Bullous disorder, unspecified; D64.9 Anemia, unspecified; N43.3 Hydrocele, unspecified; K21.9 Gastro-esophageal reflux disease without esophagitis; R00.1 Bradycardia, unspecified; F03.90 Unspecified dementia, unspecified severity, without behavioral disturbance, psychotic disturbance, mood disturbance, and anxiety; F17.200 Nicotine dependence, unspecified, uncomplicated; S21.202A Unspecified open wound of left back wall of thorax without penetration into thoracic cavity, initial encounter; S21.201A Unspecified open wound of right back wall of thorax without penetration into thoracic cavity, initial encounter; X58.XXXA Exposure to other specified factors, initial encounter; Y92.099 Unspecified place in other non-institutional residence as the place of occurrence of the external cause; Z99.81 Dependence on supplemental oxygen; Z79.4 Long term (current) use of insulin; Z91.19 Patient's noncompliance with other medical treatment and regimen
CPT/HCPCS: G0378; G0379; J3370

== ENCOUNTER → 2018-08-04 | Outpatient (REF) | payer MEDICARE, OTHER ==
[~2018-08-04] MED LIST changes: +QUETIAPINE FUMA25 MG PO
[2018-08-04 13:08] VITALS: BP 102/58
== END | disposition home or self-care (01) ==
LOC: ULTRASND 08:46 → INF 08:46 → ULTRASND 09:30
PROVIDERS: ATTEND Internal Medicine Geriatric Medicine
PROC: 0W9G3ZZ Drainage of Peritoneal Cavity, Percutaneous Approach (ICD-10-PCS; principal; 2018-08-04)
PROC: BW111ZZ Fluoroscopy of Abdomen and Pelvis using Low Osmolar Contrast (ICD-10-PCS; 2018-08-04)
DX: R18.8 Other ascites (principal)
CPT/HCPCS: P9047

== ENCOUNTER 2018-09-07 08:41 | Emergency (ER) | payer MEDICARE, MEDICAID ==
[~2018-09-07] VITALS: Ht 180.3 cm; Wt 114.6 kg
[2018-09-07] MEDS ORDERED: CEPHALEXIN500 M1 PO (12:22)
[2018-09-07 14:07] VITALS: BP 99/49
== END 2018-09-07 14:07 ==
LOC: ED 08:41
DX: S49.92XA Unspecified injury of left shoulder and upper arm, initial encounter (principal); S40.012A Contusion of left shoulder, initial encounter; S41.012A Laceration without foreign body of left shoulder, initial encounter; S61.512A Laceration without foreign body of left wrist, initial encounter; S21.212A Laceration without foreign body of left back wall of thorax without penetration into thoracic cavity, initial encounter; S21.211A Laceration without foreign body of right back wall of thorax without penetration into thoracic cavity, initial encounter; W17.89XA Other fall from one level to another, initial encounter; Y92.129 Unspecified place in nursing home as the place of occurrence of the external cause; R94.31 Abnormal electrocardiogram [ECG] [EKG]